=== PATIENT | female | born 1955 | race Caucasian/White ===

== ENCOUNTER 2021-09-25 16:51 | Emergency (ER) | payer MEDICARE ==
--- OUTSIDE RECORDS SUMMARY | 2021-09-25 16:57 | XMS REPORT | Continuity of Care Document ---
:1955 Author Organization [facility] t Address [address] [place] [address] Care Team Providers Name Role Phone Arturo Frandy HEWITT Primary Care Physician Angus Morris Attending Clinician Unavailable Fauzia Jackson Attending Clinician Unavailable RADIOLOGY Attending Clinician Unavailable Joy_Adriel Attending Clinician Unavailable Doctor Unassigned, Name Attending Clinician Unavailable Therapy, Covid Infusion Attending Clinician Unavailable Adriel Morris MD Attending Clinician Adriel MORRIS Attending Clinician Unavailable JAZMÍN FONTAINE Attending Clinician Unavailable Jazmín Fontaine MD Attending Clinician EBEN_Lory Attending Clinician Unavailable Fidelia Rodriguez MD Attending Clinician Regan GAMA Attending Clinician Unavailable Lory TAVARES Attending Clinician Unavailable Angus KATHLEEN Attending Clinician Unavailable Lory Joshi Attending Clinician Fauzia Gallegos MD Attending Clinician Fauzia GALLEGOS Attending Clinician Unavailable Pob, Lab Main Attending Clinician Unavailable José LAWLER Attending Clinician Unavailable Tiffany Admitting Clinician Unavailable JAZMÍN FONTAINE Admitting Clinician Unavailable SAURABH Admitting Clinician Unavailable Payers Payer Name Policy Type Policy Number Effective Date Expiration Date S jeremías [facility] Welcome Funds DCYSKS 2020 (MEDICARE 00:00:00 REPLACEMENT HMO) [place] [id number] 2019 MEDICARE SUPPLEMENT 00:00:00 Problems Condition Condition Condition Status Onset Resolution Last Treating Co mments Source Name Details Category Date Date Treatment Clinician Date 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 at 03 st L3-L4 L3-L4 00:00: Hospita level level 00 l Lumbar Lumbar Disease Active Methodi stenosis stenosis 11-11 st with with 00:00: Hospita neurogenic neurogenic 00 l claudicati claudicati on on DDD DDD Disease Active Methodi (degenerat (degenerat 11-11 st deisy disc deisy disc 00:00: Hospit a disease), disease), 00 l lumbar lumbar Pacemaker Pacemaker Disease Active Met hodi 11-11 st 00:00: Hospita 00 l H/O heart H/O heart Disease Active Met hodi artery artery 11-11 st stent stent 00:00: Hospita 00 l Obesity, Obesity, Disease Active Metho di Class II, Class II, 03 st BMI BMI 00:00: Hospita 35-39.9 35-39.9 00 l LEFT HEART Diagnosis Active 2019-08-15 Memoria CATH / 08-02 10:41:00 l POSS PCI LEFT 00:00: [place] HEART CATH 00 / POSS PCI Active 08/02/2019 [facility] Pacemaker Pacemaker Disease Active 2017-07 Uni vers 1-15 ity of 00:00: [place] 00 [facility] Branch Urinary Urinary Disease Active Univers incontinen incontinen 04-06 it y of ce, ce, 00:00: [place] unspecifie unspecifie 00 Me dical d type d type Branch Fatty Fatty Disease Active Univers liver liver - ity of 00:00: [place] 00 Medical Branch Colon Colon Disease Active 2015-07 Univers cancer cancer 0-20 [place] of screening screening [place] Vaginal Vaginal Disease Active Univers atrophy atrophy 8 ity of 00:00: [place] 00 Medical Branch Postmenopa Postmenopa Disease Active U alex usal usal 03-06 ity of 00:00: [place] [facility] History of History of Disease Active U alex hysterecto hysterecto 03-06 it y of my my 00:00: [place] 00 Medical Branch Obesity Obesity Disease Active Univers (BMI (BMI 8- ity of 30.0-34.9) 30.0-34.9) [place] Overweight Problem Active 2019-08-13 M emoria (finding) 08-22 22:19:59 l 00:00: [place] Overweight 00 (finding) Active 08/22/2014 Problem 08/13/2019 Data migrated from [place] [employer] on 01/16/15. [facility]ysp[facility] on Problem Active 2017-06-04 M emoria exertion 11-27 01:11:35 l (finding) Dyspnea 00:00: Herm hunter on 00 exertion (finding) Active 11/27/2013 Problem 06/04/2017 Data migrated from [employer] on 12/08/14. [facility] Cervical Problem Active 2012-072019-08-13 Mem oria radiculiti - 22:19:59 l s Cervical 00:00: Juni n (disorder) radiculiti 00 s (disorder) Active 05/17/2013 Problem 08/13/2019 Data migrated from [employer] on 03/05/15. [facility] Pernicious Problem Active 2019-08-13 M emoria anemia 04-03 22:19:59 l (disorder) 00:00: [place] Pernicious 00 anemia (disorder) Active 04/03/2013 Problem 08/13/2019 Data migrated from [employer] on 12/08/14. [facility] Diagnosis Active 2013-01-27 Me moria 01-27 18:21:[address] SENT 08:00: [place] 00 Active 01/27/2013 [facility] Adjustment Problem Active 2011-072019-08-13 M emoria disorder 2- 22:19:59 l with 00:00: [place] depressed Adjustment 00 mood disorder (disorder) with depressed mood (disorder) Active 06/27/2012 Problem 08/13/2019 Data migrated from [employer] on 12/08/14. Medical [facility] Dyslipidem Problem Active 2011-072019-08-13 M anariadriel ia 2-17 22:19:59 l (disorder) 00:00: [place] n Dyslipidem 00 ia (disorder) Active 06/27/2012 Problem 08/13/2019 Data migrated from [employer] on 12/08/14. [facility] Diabetes Problem Resolve 2013-04-05 Me moria mellitus - d 21:39:45 l adult Diabetes Juni n onset mellitus - adult onset Resolved Problem 04/05/2013 [facility] [place] Hyperchole Problem Resolve 2013-04-05 Memoria sterolemia d 21:39:45 l [place] Hyperchole sterolemia Resolved Problem 04/05/2013 [facility] [place] Hypertensi Problem Resolve 2013-04-05 Memoria on d 21:39:45 l [place] Hypertensi on Resolved Problem 04/05/2013 [facility] [place] Hypertrigl Problem Resolve 2013-04-05 Memoria yceridemia d 21:39:45 l [place] Hypertrigl yceridemia Resolved Problem 04/05/2013 [facility] [place] TIA Problem Resolve 2013-04-05 Tej ángela d 21:39:45 l TIA [place] Resolved Problem 04/05/2013 [facility] OPIPaulina [place] Diabetes Problem Resolve 2019-08-13 Me moria mellitus d 22:19:59 l type 2 Diabetes Juni n (disorder) mellitus type 2 (disorder) Resolved Problem 08/13/2019 [facility] [place] Hyperchole Problem Resolve 2019-08-13 Memoria sterolemia d 22:19:59 l (disorder) Juni n Hyperchole sterolemia (disorder) Resolved Problem 08/13/2019 [facility] [place] [place] Hypertensi Problem Resolve 2019-08-13 Memoria ve d 22:19:59 l disorder, [place] systemic Hypertensi arterial ve (disorder) disorder, systemic arterial (disorder) Resolved Problem 08/13/2019 [facility] [place] Hypertrigl Problem Resolve 2019-08-13 Memoria yceridemia d 22:19:59 l (disorder) Juni n Hypertrigl yceridemia (disorder) Resolved Problem 08/13/2019 [facility], [facility] Transient Problem Resolve 2019-08-13 M emoria ischemic d 22:19:59 l attack [place] (disorder) Transient ischemic attack (disorder) Resolved Problem 08/13/2019 [facility], [place] Benign Problem Active 2019-08-13 Memor ia paroxysmal 22:19:59 l positional Benign Herm hunter vertigo paroxysmal (disorder) positional vertigo (disorder) Active Problem 08/13/2019 [facility] Bradycardi Problem Active 2019-08-13 M emoria a 22:19:59 l (disorder) Juni n Bradycardi a (disorder) Active Problem 08/13/2019 [facility] Liver Problem Active 2019-08-13 Memor ia function 22:19:59 l tests Liver [place] abnormal function (finding) tests abnormal (finding) Active Problem 08/13/2019 [facility] Obesity Problem Active 2019-08-13 Tej ángela (disorder) 22:19:59 l Obesity [place] (disorder) Active Problem 08/13/2019 [facility] Sick sinus Problem Active 2019-08-13 M emoria syndrome 22:19:59 l (disorder) Sick Juni n sinus syndrome (disorder) Active Problem 08/13/2019 [facility] Skin tag Problem Active 2019-08-13 Mem oria (disorder) 22:19:59 l Skin tag Juni n (disorder) Active Problem 08/13/2019 [facility] Preoperati Problem Resolve 2012-072019-08-13 2019-08-13 Memoria ve d 08-29 22:19:59 22:19:59 l procedures 00:00: Juni n (procedure Preoperati 00 ) ve procedures (procedure ) Resolved 06/28/2013 Problem 08/13/2019 Data migrated from [employer] on 01/26/15.Da ta migrated from [employer] on 01/25/15. [facility] Acute Problem Resolve 2019-08-13 2019-08-13 Memoria pyelonephr d 01-27 22:19:59 22:19:59 l itis Acute 00:00: [place] (disorder) pyelonephr 00 itis (disorder) Resolved 01/27/2013 Problem 08/13/2019 Data migrated from [place] [employer] on 01/26/15.Da ta migrated from [employer] on 01/25/15. [facility] Streptococ Problem Resolve 2019-08-13 2019-08-13 Memoria mell sore d 10-24 22:19:59 22:19:59 l throat 00:00: [place] (disorder) Streptococ 00 mell sore throat (disorder) Resolved 10/24/2012 Problem 08/13/2019 Data migrated from [employer] on 01/26/15.Da ta migrated from [place] [employer] on 01/25/15. [facility] Allergies, Adverse Reactions, Alerts Allergy Allergy Status Severity Reaction(s) Onset Inactive Treating Comm ents Source Name Type Date Date Clinician Sulfa Propensi Active Other (See unknown Met hodi (Sulfona ty to Comments) 11-06 mide adverse 00:00: Hospita Antibiot reaction 00 l ics) s to drug Sulfa Propensi Active Swelling 2019-07 Univer s (Sulfona ty to 0-05 ity of mide adverse 00:00: [place] Antibiot reaction 00 Medica l ics) s Branch SULFA Drug Active Swelling 2019-07 Univers (SULFONA Class 0-05 ity of MIDE 00:00: [place] ANTIBIOT 00 Medical ICS) Branch NO KNOWN Drug Active Univers ALLERGIE Class ity of S [facility] Family History Family Member Diagnosis Comments Start Date Stop Date Source Natural brother [facility] Natural father Diabetes [facility] Natural father [facility] Natural [facility] Hypert[facility] Natural mother Arthritis [facility] [place] Natural mother Cancer [facility] [place] [facility] [place] Social History Social Habit Start Date Stop Date Quantity Comments Source Exposure to Yes University of SARS-CoV-2 (event) [place] [facility] History [facility] o f Alcohol Frequency [place] [facility] History [facility] o f Alcohol Std Drinks [place] [facility] History [facility] University o f Alcohol Binge [place] [facility] History of tobacco Smoker [facility] Cigarettes smoked 2020-11-06 2020-11-[address] current (pack per 00:00:00 00:00:00 Hospita l day) - Reported Cigarette 2020-11-06 2020-11-06 Spiritism pack-years 00:00:00 00:00:00 Hospital Tobacco use and 2020-11-06 2020-11-06 Smokeless tobacco Me thodist exposure 00:00:00 00:00:00 non-user Hospital Alcohol intake 2020-11-06 2020-11-06 Ex-drinker [facility] 00:00:00 00:00:00 (finding) Hospital Alcohol Comment 2016-04-29 2016-04-29 Occasional Universit y of 00:00:00 00:00:00 Drinker [facility] Tobacco Comment 2016-03-06 2016-03-06 quit 43 years ago Un iversity of 00:00:00 00:00:00 [facility] Social History 2015-07-31 2015-07-31 [facility] amrita 17:03:29 17:03:29 Sex [birth year] [facility] 00:00:00 00:00:00 Hospital Smoking Status Start Date Stop Date Source Ex-smoker 2020-11-06 00:00:00 2020-11-06 00:00:00 [facility] Medications Ordered Filled Start Stop Current Ordering Indication Dosage Frequency Signature Comments Components Source Medication Medication Date Date Medication? Clinician (SIG) Name Name casirivimab 2020-07- No [id number] 1200mg 1,200 mg, Univers -imdevimab 09-01 Subcutaneo it y of (REGEN-COV 23:30: 22:25 us, ONCE, [place] (EUA[place] 00 :00 1 dose, On Medical injection Tue Branch (CO-FORMULA 07/01/21 TION) 1,200 at 1730, mg Routine metoclopram 2020-07 Yes 10mg 10 mg, Univ ers vanessa HCl -19 Oral, AC, ity of (REGLAN) 22:30: First dose Iván as tablet 10 00 on Sun Medical mg 06/29/21 Branch at 1630, Until Discontinu ed, Routine diphenhydrA 2020-07- No 25mg 25 mg, Uni vers MINE -06-29 Oral, ity of (BENADRYL) 20:00: 18:59 ONCE, 1 Iván as tablet 25 00 :00 dose, On Medica l mg [place] Branch 06/29/21 at 1400, SLOAN acetaminoph 2020-07- No 1000mg 1,000 mg, Univers en 08-30 Oral, ONCE ity of (TYLENOL) 20:00: 18:59 NOW, 1 [place] tablet 00 :00 dose, On Medical 1,000 mg Sun Branch 06/29/21 at 1400, Routine famotidine 2020-07- Yes [id number] 20mg Take 1 Univers (PEPCID) 20 08-30 tablet by it y of mg tablet 00:00: 05:59 mouth 2 [place] 00 :[place] (two) Medical times Branch daily for 7 days. Zinc 50 mg 2020-07- Yes [id number] 25mg Take 25 mg Univers Tab 08-30 by mouth 2 ity of 00:00: 05:59 (two) [place] 00 :00 times Medical daily for Branch 7 days. guaiFENesin 2020-07- Yes [id number] 600mg Take 1 Univers (MUCINEX) 08-30 tablet by ity of 600 mg 00:00: 05:59 mouth [place] tablet 00 :00 every 12 Medical (twelve) Branch hours for 7 days. famotidine 2020-07- Yes [id number] 20mg Take 1 Univers (PEPCID) 20 08-30 tablet by it y of mg tablet 00:00: 05:59 [place] 2 [place] 00 :[place] (two) Medical times Branch daily for 7 days. Zinc 50 mg 2020-07- Yes [id number] 25mg Take 25 mg Univers Tab 08-30 by mouth 2 ity of 00:00: 05:59 (two) [place] 00 :00 times Medical daily for Branch 7 days. guaiFENesin 2020-07- Yes [id number] 600mg Take 1 Univers (MUCINEX) 08-30- tablet by ity of 600 mg 00:00: 05:59 mouth [place] tablet 00 :00 every 12 Medical (twelve) Branch hours for 7 days. quercetin 2020-07- Yes [id number] 250mg 250 mg 2 Univers dihydrate, 08-30- (two) ity of bulk, 100 % 00:00: 05:59 [place] Powd 00 :00 daily for Medical 4 days. Branch quercetin 2020- 202- Yes [id number] 250mg 250 mg 2 Univers dihydrate, 2-19 12-24 (two) ity of bulk, 100 % 00:00: 05:59 [place] Powd 00 :00 daily for Medical 4 days. Branch biotin Yes Take by Methodi 10,000 mcg 4-[address] capsule 12:12: Hospita 55 l cholecalcif 0 Yes Take by Met hodi andree, 4-[address] vitamin D3, 12:12: Hospit a (Vitamin 55 l D3) 125 mcg (5,000 unit) tablet ascorbic Yes 1000mg QD Take 1,000 M ethodi acid, 4-[address] vitamin C, 12:12: mouth Hospit a (vitamin C) 55 daily. l 1000 MG tablet multivitami Yes 1{tbl} QD Take 1 Me thodi n tablet 4-[address] 12:12: mouth Hospita 54 daily. l aspirin 0 Yes 81mg QD Take 81 mg Meth annie (ECOTRIN) 4-[address] 81 MG 12:12: daily. Hospita enteric 54 l coated tablet diphenhydrA Yes 50mg Q.5D Take 50 mg Methodi MINE 4-[address] (BENADRYL) 12:12: (two) Hospit a 25 mg 54 times a l tablet day. zinc Yes Take by Methodi sulfate 4-[address] (ZINC-220 12:12: Hospita ORAL) 54 l Lactobac 0 Yes Take by Method i no.41/Bifid 4-[address] obact no.7 12:12: Hospita (PROBIOTIC- 54 l 10 ORAL) ibuprofen 0 Yes 200mg Q6H Take 200 Met hodi (ADVIL) 200 4-[address] MG tablet 12:12: mouth Hospita 53 every 6 l (six) hours as needed for mild pain. escitalopra Yes 10mg QD Take 10 mg Methodi m (LEXAPRO) 3-[address] 10 MG 00:00: daily. Hospita tablet 00 l atorvastati Yes 20mg QD Take 20 mg Methodi n (LIPITOR) 3-[address] 20 mg 00:00: daily. Hospita tablet 00 l amLODIPine Yes 5mg QD Take 5 mg Me thodi (NORVASC) 5 2-[address] mg tablet 00:00: daily. Hospit a 00 l clopidogreL Yes 75mg QD Take 75 mg Methodi (PLAVIX) 75 2-[address] mg tablet 00:00: daily. Hospit a 00 l fenofibrate Yes 145mg QD Take 145 M ethodi (TRICOR) 2-[address] 145 MG 00:00: mouth Hospita tablet 00 daily. l metFORMIN Yes 500mg Q.5D Take 500 Met hodi XR 2-[address] (GLUCOPHAGE 00:00: mouth 2 Hos sarah -XR) 500 mg 00 (two) l 24 hr times a tablet day. contrast 2019-07 2020- No Intravenou Un rishabh previously 07-30 s, ONCE, 1 it y of administere 16:30: 16:13 dose, Jennifer [place] d 0 mL 00 :00 05/30/20 Medical at 1030, Branch Routine iohexoL 2019-07 2020- No 50mL 50 mL, Univers (OMNIPAQUE -19 05-30 Injection, it y of 300-50 mL)) 16:15: 16:13 ONCE, 1 [place] injection 00 :00 dose, Jennifer Medic al 50 mL 05/30/20 Branch at 1015, Routine amLODIPine 2019-07 Yes Univers 5 mg tablet 0-23 ity of 00:00: [place] 00 Medical Branch amLODIPine 2019-07 Yes Univers 5 mg tablet 0-23 ity of 00:00: [place] 00 Medical Branch amLODIPine 2019- Yes Univers 5 mg tablet 0-23 ity of 00:00: [place] [facility] amLODIPine 2019-07 Yes Univers 5 mg tablet 0-23 ity of 00:00: [place] [facility] amLODIPine 2020- Yes Univers 5 mg tablet 0-23 ity of 00:00: [place] 00 Medical Branch amLODIPine 2020- Yes Univers 5 mg tablet 0-23 ity of 00:00: [place] [facility] amLODIPine 2019- Yes Univers 5 mg tablet 0-23 ity of 00:00: [place] 00 Medical Branch amLODIPine 2020-1 Yes Univers 5 mg tablet 0-23 ity of 00:00: [place] 00 Medical Branch amLODIPine 2020-1 Yes Univers 5 mg tablet 0-23 ity of 00:00: [place] [facility] amLODIPine 2020- Yes Univers 5 mg tablet 0-23 ity of 00:00: [place] [facility] amLODIPine 2020- Yes Univers 5 mg tablet 0-23 ity of 00:00: [place] [facility] amLODIPine 2020- Yes Univers 5 mg tablet 0-23 ity of 00:00: [place] [facility] amLODIPine 2020- Yes Univers 5 mg tablet 0-23 ity of 00:00: [place] [address] Medical Branch amLODIPine 2020- Yes Univers 5 mg tablet 0-23 ity of 00:00: [place] [facility] amLODIPine 2020- Yes Univers 5 mg tablet 0-23 ity of 00:00: [place] [address] Medical Branch amLODIPine 2020- Yes Univers 5 mg tablet 0-23 ity of 00:00: [place] [facility] amLODIPine 2020- Yes Univers 5 mg tablet 0-23 ity of 00:00: [place] [facility] amLODIPine 2020- Yes Univers 5 mg tablet 0-23 ity of 00:00: [place] [address] Medical Branch amLODIPine 2020- Yes Univers 5 mg tablet 0-23 ity of 00:00: [place] [address] Medical Branch amLODIPine 2020- Yes Univers 5 mg tablet 0-23 ity of 00:00: [place] [address] Medical Branch amLODIPine 2020- Yes Univers 5 mg tablet 0-23 ity of 00:00: [place] [facility] amLODIPine 2020- Yes Univers 5 mg tablet 0-23 ity of 00:00: [place] [facility] amLODIPine 2020- Yes Univers 5 mg tablet 0-23 ity of 00:00: [place] [address] Medical Branch amLODIPine 2020-1 Yes Univers 5 mg tablet 0-23 ity of 00:00: [place] [facility] amLODIPine 2020- Yes Univers 5 mg tablet 0-23 ity of 00:00: [place] [facility] amLODIPine 2020- Yes Univers 5 mg tablet 0-23 ity of 00:00: [place] [address] Medical Branch amLODIPine 2020-1 Yes Univers 5 mg tablet 0-23 ity of 00:00: [place] [facility] amLODIPine 2020-1 Yes Univers 5 mg tablet 0-23 ity of 00:00: [place] 00 Medical Branch vitamin C 2019- Yes 100mg Take 100 Uni vers (VITAMIN C) 0-05 mg by ity of 100 mg 19:42: mouth [place] tablet 06 daily. Medical Branch aspirin 81 2019-07 Yes 81mg Take 81 mg U nivers mg chewable 0-05 by mouth ity of tablet 19:42: daily. Medical Branch DIPHENHYDRA 2019-07 Yes Take by Un rishabh MINE HCL 0-05 mouth. ity of (NIGHT TIME 19:42: [place] SLEEP AID Medical ORAL) Branch docosahexan 2019-07 Yes Take by Un rishabh oic 0-05 mouth. ity of acid/epa 19:42: [place] (FISH OIL Medical ORAL) Branch homeopathic 2019-07 Yes Take by Un rishabh drugs 0-05 mouth. ity of (INSOMNIA 19:42: [place] PLUS ORAL) 06 Medical Branch clopidogreL 2019-07 Yes 75mg Take 75 mg Univers 75 mg 0-05 by mouth ity of tablet 19:42: daily. Medical Branch simvastatin 2019-07 Yes 10mg Take 10 mg Univers 10 mg 0-05 by mouth ity of tablet 19:42: at [place] 06 bedtime. Medical Branch fenofibrate 2019-07 Yes 145mg Take 145 U nivers 145 mg 0-05 mg by ity of tablet 19:42: mouth [place] 06 daily. Medical Branch metFORMIN 2019-07 Yes 500mg Take 500 Uni vers 500 mg 0-05 mg by ity of tablet 19:42: mouth 2 [place] 06 (two) Medical times Branch daily with meals. escitalopra 2019-07 Yes 10mg Take 10 mg Univers m oxalate 0-05 by mouth ity of 10 mg 19:42: daily. [place] tablet 06 Medical Branch nitrofurant 2019-07 Yes 100mg Take 100 U nivers oin 50 mg 0-05 mg by ity of capsule 19:42: mouth [place] 06 every 6 Medical (six) Branch hours. cranberry/B 2019-07 Yes Take by Un rishabh .coagulan/C 0-05 mouth. ity of /calcium 19:42: [place] (CRANBERRY- Medical PROBIOTIC Branch ORAL) vitamin C 2019-07 Yes 100mg Take 100 Uni vers (VITAMIN C) 0-05 mg by ity of 100 mg 19:42: mouth [place] tablet 06 daily. Medical Branch aspirin 81 2019-07 Yes 81mg Take 81 mg U nivers mg chewable 0-05 by mouth ity of tablet 19:42: daily. Medical Branch DIPHENHYDRA 2019-07 Yes Take by Un rishabh MINE HCL 0-05 mouth. ity of (NIGHT TIME 19:42: [place] SLEEP AID Medical ORAL) Branch docosahexan 2019-07 Yes Take by Un rishabh oic 0-05 mouth. ity of acid/epa 19:42: [place] (FISH OIL Medical ORAL) Branch homeopathic 2019-07 Yes Take by Un rishabh drugs 0-05 mouth. ity of (INSOMNIA 19:42: [place] PLUS ORAL) 06 Medical Branch clopidogreL 2019-07 Yes 75mg Take 75 mg Univers 75 mg 0-05 by mouth ity of tablet 19:42: daily. Medical Branch simvastatin 2019-07 Yes 10mg Take 10 mg Univers 10 mg 0-05 by mouth ity of tablet 19:42: at [place] bedtime. Medical Branch fenofibrate 2019-07 Yes 145mg Take 145 U nivers 145 mg 0-05 mg by ity of tablet 19:42: mouth [place] 06 daily. Medical Branch metFORMIN 2019-07 Yes 500mg Take 500 Uni vers 500 mg 0-05 mg by ity of tablet 19:42: mouth 2 [place] [address] (two) Medical times Branch daily with meals. escitalopra 2019-07 Yes 10mg Take 10 mg Univers m oxalate 0-05 by mouth ity of 10 mg 19:42: daily. [place] tablet Medical Branch nitrofurant 2019-07 Yes 100mg Take 100 U nivers oin 50 mg 0-05 mg by ity of capsule 19:42: mouth [place] 06 every 6 Medical (six) Branch hours. cranberry/B 2019-07 Yes Take by Un rishabh .coagulan/C 0-05 mouth. ity of /calcium 19:42: [place] (CRANBERRY- Medical PROBIOTIC Branch ORAL) vitamin C 2019-07 Yes 100mg Take 100 Uni vers (VITAMIN C) 0-05 mg by ity of 100 mg 19:42: mouth [place] tablet 06 daily. Medical Branch aspirin 81 2019-07 Yes 81mg Take 81 mg U nivers mg chewable 0-05 by mouth ity of tablet 19:42: daily. Medical Branch DIPHENHYDRA 2019-07 Yes Take by Un rishabh MINE HCL 0-05 mouth. ity of (NIGHT TIME 19:42: [place] SLEEP AID Medical ORAL) Branch docosahexan 2019-07 Yes Take by Un rishabh oic 0-05 mouth. ity of acid/epa 19:42: [place] (FISH OIL Medical ORAL) Branch homeopathic 2019-07 Yes Take by Un rishabh drugs 0-05 mouth. ity of (INSOMNIA 19:42: [place] PLUS ORAL) 06 Medical Branch clopidogreL 2019-07 Yes 75mg Take 75 mg Univers 75 mg 0-05 by mouth ity of tablet 19:42: daily. Medical Branch simvastatin 2019- Yes 10mg Take 10 mg Univers 10 mg 0-05 by mouth ity of tablet 19:42: at [place] [address] bedtime. Medical Branch fenofibrate 2019-07 Yes 145mg Take 145 U nivers 145 mg 0-05 mg by ity of tablet 19:42: mouth [place] 06 daily. Medical Branch metFORMIN 2019-07 Yes 500mg Take 500 Uni vers 500 mg 0-05 mg by ity of tablet 19:42: mouth 2 [place] [address] (two) Medical times Branch daily with meals. escitalopra 2019-07 Yes 10mg Take 10 mg Univers m oxalate 0-05 by mouth ity of 10 mg 19:42: daily. [place] tablet Medical Branch nitrofurant 2019-07 Yes 100mg Take 100 U nivers oin 50 mg 0-05 mg by ity of capsule 19:42: mouth [place] [address] every 6 Medical (six) Branch hours. cranberry/B 2019-07 Yes Take by Un rishabh .coagulan/C 0-05 mouth. ity of /calcium 19:42: [place] (CRANBERRY- Medical PROBIOTIC Branch ORAL) vitamin C 2019- Yes 100mg Take 100 Uni vers (VITAMIN C) 0-05 mg by ity of 100 mg 19:42: mouth [place] tablet 06 daily. Medical Branch aspirin 81 2019-07 Yes 81mg Take 81 mg U nivers mg chewable 0-05 by mouth ity of tablet 19:42: daily. [place] [address] Medical Branch DIPHENHYDRA 2019-07 Yes Take by Un rishabh MINE HCL 0-05 mouth. ity of (NIGHT TIME 19:42: [place] SLEEP AID Medical ORAL) Branch docosahexan 2019-07 Yes Take by Un rishabh oic 0-05 mouth. ity of acid/epa 19:42: [place] (FISH OIL Medical ORAL) Branch homeopathic 2019-07 Yes Take by Un rishabh drugs 0-05 mouth. ity of (INSOMNIA 19:42: [place] PLUS ORAL) Medical Branch clopidogreL 2019-07 Yes 75mg Take 75 mg Univers 75 mg 0-05 by mouth ity of tablet 19:42: daily. Medical Branch simvastatin 2019-07 Yes 10mg Take 10 mg [facility] 10 mg 0-05 by mouth ity of tablet 19:42: at [place] [address] bedtime. [facility] fenofibrate 2019-07 Yes 145mg Take 145 U nivers 145 mg 0-05 mg by ity of tablet 19:42: mouth [place] 06 daily. Medical Branch metFORMIN 2019-07 Yes 500mg Take 500 Uni vers 500 mg 0-05 mg by ity of tablet 19:42: mouth 2 (two) Medical times Branch daily with meals. escitalopra 2019-07 Yes 10mg Take 10 mg [facility] m oxalate 0-05 by mouth ity of 10 mg 19:42: daily. [place] tablet Medical Branch nitrofurant 2019-07 Yes 100mg Take 100 U nivers oin 50 mg 0-05 mg by ity of capsule 19:42: mouth every 6 Medical (six) Branch hours. cranberry/B 2019-07 Yes Take by Un rishabh .coagulan/C 0-05 mouth. ity of /calcium 19:42: [place] (CRAN[facility]ERRY- Medical PROBIOTIC Branch ORAL) vitamin C 2019-07 Yes 100mg Take 100 Uni vers (VITAMIN C) 0-05 mg by ity of 100 mg 19:42: mouth [place] tablet 06 daily. Medical Branch aspirin 81 2019-07 Yes 81mg Take 81 mg U nivers mg chewable 0-05 by mouth ity of tablet 19:42: daily. [facility] DIPHENHYDRA 2019-07 Yes Take by Un rishabh MINE HCL 0-05 mouth. ity of (NIGHT TIME 19:42: [place] SLEEP AID Medical ORAL) Branch docosahexan 2019-07 Yes Take by Un rishabh oic 0-05 mouth. ity of acid/epa 19:42: [place] (FISH OIL Medical ORAL) Branch homeopathic 2019-07 Yes Take by Un rishabh drugs 0-05 mouth. ity of (INSOMNIA 19:42: [place] PLUS ORAL) Medical Branch clopidogreL 2019-07 Yes 75mg Take 75 mg [facility] 75 mg 0-05 by mouth ity of tablet 19:42: daily. [facility] simvastatin 2019-07 Yes 10mg Take 10 mg [facility] 10 mg 0-05 by mouth ity of tablet 19:42: at [place] [address] bedtime. Medical [facility] fenofibrate 2019-07 Yes 145mg Take 145 U nivers 145 mg 0-05 mg by ity of tablet 19:42: mouth [place] 06 daily. [facility] metFORMIN 2019-07 Yes 500mg Take 500 [facility] vers 500 mg 0-05 mg by ity of tablet 19:42: mouth 2 [place] (two) Medical times Branch daily with meals. escitalopra 2019-07 Yes 10mg Take 10 mg [facility] m oxalate 0-05 by mouth ity of 10 mg 19:42: daily. [place] [address] Medical Branch nitrofurant 2019-07 Yes 100mg Take 100 U nivers oin 50 mg 0-05 mg by ity of capsule 19:42: mouth [place] 06 every 6 Medical (six) Branch hours. cranberry/B 2019-07 Yes Take by Un rishabh .coagulan/C 0-05 mouth. ity of /calcium 19:42: [place] ([facility]- Medical PROBIOTIC Branch ORAL) vitamin C 2019-07 Yes 100mg Take 100 [facility] vers (VITAMIN C) 0-05 mg by ity of 100 mg 19:42: mouth [place] tablet 06 daily. Medical [facility] aspirin 81 2019-07 Yes 81mg Take 81 mg [facility] nivers mg chewable 0-05 by mouth ity of tablet 19:42: daily. [facility] DIPHENHYDRA 2019-07 Yes Take by Un rishabh MINE HCL 0-05 mouth. ity of (NIGHT TIME 19:42: [place] SLEEP AID Medical ORAL) Branch docosahexan 2019-07 Yes Take by Un rishabh oic 0-05 mouth. ity of acid/epa 19:42: [place] (FISH OIL Medical ORAL) Branch homeopathic 2019-07 Yes Take by Un rishabh drugs 0-05 mouth. ity of (INSOMNIA 19:42: [place] PLUS ORAL) Medical Branch clopidogreL 2019-07 Yes 75mg Take 75 mg [facility] 75 mg 0-05 by mouth ity of tablet 19:42: daily. [place] [address] Medical Branch simvastatin 2019-07 Yes 10mg Take 10 mg [facility] 10 mg 0-05 by mouth ity of tablet 19:42: at [place] 06 bedtime. Medical [facility] fenofibrate 2019-07 Yes 145mg Take 145 [facility] nivers 145 mg 0-05 mg by ity of tablet 19:42: mouth [place] 06 daily. [facility] metFORMIN 2019-07 Yes 500mg Take 500 [facility] vers 500 mg 0-05 mg by ity of tablet 19:42: mouth 2 [place] (two) Medical times Branch daily with meals. escitalopra 2019-07 Yes 10mg Take 10 mg [facility] m oxalate 0-05 by mouth ity of 10 mg 19:42: daily. [place] tablet Medical [facility] nitrofurant 2019-07 Yes 100mg Take 100 [facility] nivers oin 50 mg 0-05 mg by ity of capsule 19:42: mouth [place] 06 every 6 Medical (six) Branch hours. cranberry/B 2019-07 Yes Take by Un rishabh .coagulan/C 0-05 mouth. ity of /calcium 19:42: [place] ([facility]- Medical PROBIOTIC Branch ORAL) vitamin C 2019-07 Yes 100mg Take 100 [facility] vers (VITAMIN C) 0-05 mg by ity of 100 mg 19:42: mouth [place] tablet 06 daily. Medical [facility] aspirin 81 2019-07 Yes 81mg Take 81 mg [facility] nivers mg chewable 0-05 by mouth ity of tablet 19:42: daily. [facility] DIPHENHYDRA 2019-07 Yes Take by Un rishabh MINE HCL 0-05 mouth. ity of (NIGHT TIME 19:42: [place] SLEEP AID Medical ORAL) Branch docosahexan 2019-07 Yes Take by Un rishabh oic 0-05 mouth. ity of acid/epa 19:42: [place] (FISH OIL Medical ORAL) Branch homeopathic 2019-07 Yes Take by Un rishab[facility] drugs 0-05 mouth. ity of (INSOMNIA 19:42: [place] PLUS ORAL) 06 Medical Branch clopidogreL 2019-07 Yes 75mg Take 75 mg [facility] 75 mg 0-05 by mouth ity of tablet 19:42: daily. [facility] simvastatin 2019-07 Yes 10mg Take 10 mg [facility] 10 mg 0-05 by mouth ity of tablet 19:42: at [place] [address] bedtime. Medical [facility] fenofibrate 2019-07 Yes 145mg Take 145 [facility] nivers 145 mg 0-05 mg by ity of tablet 19:42: mouth [place] 06 daily. [facility] metFORMIN 2019-07 Yes 500mg Take 500 [facility] vers 500 mg 0-05 mg by ity of tablet 19:42: mouth 2 (two) Medical times Branch daily with meals. escitalopra 2019-07 Yes 10mg Take 10 mg [facility] m oxalate 0-05 by mouth ity of 10 mg 19:42: daily. [place] tablet Medical [facility] nitrofurant 2019-07 Yes 100mg Take 100 U nivers oin 50 mg 0-05 mg by ity of capsule 19:42: mouth [place] 06 every 6 Medical (six) Branch hours. cranberry/B 2019-07 Yes Take by Un rishabh .coagulan/C 0-05 mouth. ity of /calcium 19:42: [place] ([facility]- Medical PROBIOTIC Branch ORAL) vitamin C 2019-07 Yes 100mg Take 100 [facility] vers (VITAMIN C) 0-05 mg by ity of 100 mg 19:42: mouth [place] tablet 06 daily. Medical Branch aspirin 81 2019-07 Yes 81mg Take 81 mg [facility] nivers mg chewable 0-05 by mouth ity of tablet 19:42: daily. [facility] DIPHENHYDRA 2019-07 Yes Take by Un rishabh MINE HCL 0-05 mouth. ity of (NIGHT TIME 19:42: [place] SLEEP AID Medical ORAL) Branch docosahexan 2019-07 Yes Take by Un rishabh oic 0-05 mouth. ity of acid/epa 19:42: [place] (FISH OIL Medical ORAL) Branch homeopathic 2019-07 Yes Take by Un rishab[facility] drugs 0-05 mouth. ity of (INSOMNIA 19:42: [place] PLUS ORAL) 06 Medical Branch clopidogreL 2019-07 Yes 75mg Take 75 mg [facility] 75 mg 0-05 by mouth ity of tablet 19:42: daily. [facility] simvastatin 2019-07 Yes 10mg Take 10 mg [facility] 10 mg 0-05 by mouth ity of tablet 19:42: at [place] 06 bedtime. Medical [facility] fenofibrate 2019-07 Yes 145mg Take 145 [facility] nivers 145 mg 0-05 mg by ity of tablet 19:42: mouth [place] 06 daily. [facility] metFORMIN 2019-07 Yes 500mg Take 500 [facility] vers 500 mg 0-05 mg by ity of tablet 19:42: mouth 2 (two) Medical times Branch daily with meals. escitalopra 2019-07 Yes 10mg Take 10 mg [facility] m oxalate 0-05 by mouth ity of 10 mg 19:42: daily. [place] tablet Medical [facility] nitrofurant 2019-07 Yes 100mg Take 100 [facility] nivers oin 50 mg 0-05 mg by ity of capsule 19:42: mouth [place] every 6 Medical (six) Branch hours. cranberry/B 2019-07 Yes Take by Un rishabh .coagulan/C 0-05 mouth. ity of /calcium 19:42: [place] ([facility]- Medical PROBIOTIC Branch ORAL) vitamin C 2019-07 Yes 100mg Take 100 [facility] vers (VITAMIN C) 0-05 mg by ity of 100 mg 19:42: mouth [place] tablet 06 daily. Medical Branch aspirin 81 2019-07 Yes 81mg Take 81 mg [facility] nivers mg chewable 0-05 by mouth ity of tablet 19:42: daily. [facility] DIPHENHYDRA 2019-07 Yes Take by Un rishabh MINE HCL 0-05 mouth. ity of (NIGHT TIME 19:42: [place] SLEEP AID Medical ORAL) Branch docosahexan 2019-07 Yes Take by Un rishabh oic 0-05 mouth. ity of acid/epa 19:42: [place] (FISH OIL Medical ORAL) Branch homeopathic 2019-07 Yes Take by Un rishab[facility] drugs 0-05 mouth. ity of (INSOMNIA 19:42: [place] PLUS ORAL) Medical Branch clopidogreL 2019-07 Yes 75mg Take 75 mg [facility] 75 mg 0-05 by mouth ity of tablet 19:42: daily. [facility] simvastatin 2019-07 Yes 10mg Take 10 mg [facility] 10 mg 0-05 by mouth ity of tablet 19:42: at [place] [address] bedtime. Medical [facility] fenofibrate 2019- Yes 145mg Take 145 [facility] nivers 145 mg 0-05 mg by ity of tablet 19:42: mouth [place] 06 daily. [facility] metFORMIN 2020- Yes 500mg Take 500 [facility] vers 500 mg 0-05 mg by ity of tablet 19:42: mouth 2 (two) Medical times Branch daily with meals. escitalopra 2019- Yes 10mg Take 10 mg [facility] m oxalate 0-05 by mouth ity of 10 mg 19:42: daily. [place] tablet Medical [facility] nitrofurant 2019- Yes 100mg Take 100 U nivers oin 50 mg 0-05 mg by ity of capsule 19:42: mouth [place] every 6 Medical (six) Branch hours. cranberry/B 2019-07 Yes Take by Un rishabh .coagulan/C 0-05 mouth. ity of /calcium 19:42: [place] ([facility]- Medical PROBIOTIC Branch ORAL) vitamin C 2019- Yes 100mg Take 100 [facility] vers (VITAMIN C) 0-05 mg by ity of 100 mg 19:42: mouth [place] tablet 06 daily. Medical Branch aspirin 81 2019-07 Yes 81mg Take 81 mg [facility] nivers mg chewable 0-05 by mouth ity of tablet 19:42: daily. [facility] DIPHENHYDRA 2019-07 Yes Take by Un rishabh MINE HCL 0-05 mouth. ity of (NIGHT TIME 19:42: [place] SLEEP AID Medical ORAL) Branch docosahexan 2019-07 Yes Take by Un rishabh oic 0-05 mouth. ity of acid/epa 19:42: [place] (FISH OIL Medical ORAL) Branch homeopathic 2019-07 Yes Take by Un r[facility]ab[facility] drugs 0-05 mouth. ity of (INSOMNIA 19:42: [place] PLUS ORAL) Medical Branch clopidogreL 2019- Yes 75mg Take 75 mg [facility] 75 mg 0-05 by mouth ity of tablet 19:42: daily. [facility] Branch simvastatin 2019-07 Yes 10mg Take 10 mg [facility] 10 mg 0-05 by mouth ity of tablet 19:42: at [place] [address] bedtime. Medical [facility] fenofibrate 2019-07 Yes 145mg Take 145 U nivers 145 mg 0-05 mg by ity of tablet 19:42: mouth 06 daily. Medical Branch metFORMIN 2019- Yes 500mg Take 500 [facility] vers 500 mg 0-05 mg by ity of tablet 19:42: mouth 2 [place] 06 (two) Medical times Branch daily with meals. escitalopra 2019-07 Yes 10mg Take 10 mg [facility] m oxalate 0-05 by mouth ity of 10 mg 19:42: daily. [place] tablet Medical [facility] nitrofurant 2019-07 Yes 100mg Take 100 U nivers oin 50 mg 0-05 mg by ity of capsule 19:42: mouth every 6 Medical (six) Branch hours. cranberry/B 2019-07 Yes Take by Un rishabh .coagulan/C 0-05 mouth. ity of /calcium 19:42: [place] ([facility]- Medical PROBIOTIC Branch ORAL) vitamin C 2019-07 Yes 100mg Take 100 [facility] vers (VITAMIN C) 0-05 mg by ity of 100 mg 19:42: mouth [place] tablet 06 daily. Medical Branch aspirin 81 2019-07 Yes 81mg Take 81 mg [facility] nivers mg chewable 0-05 by mouth ity of tablet 19:42: daily. Medical [facility] DIPHENHYDRA 2019-07 Yes Take by Un rishabh MINE HCL 0-05 mouth. ity of (NIGHT TIME 19:42: [place] SLEEP AID Medical ORAL) Branch docosahexan 2019-07 Yes Take by Un rishabh oic 0-05 mouth. ity of acid/epa 19:42: [place] (FISH OIL Medical ORAL) Branch homeopathic 2019-07 Yes Take by Un rishab[facility] drugs 0-05 mouth. ity of (INSOMNIA 19:42: [place] PLUS ORAL) Medical Branch clopidogreL 2019-07 Yes 75mg Take 75 mg [facility] 75 mg 0-05 by mouth ity of tablet 19:42: daily. [place] [facility] simvastatin 2019-07 Yes 10mg Take 10 mg [facility] 10 mg 0-05 by mouth ity of tablet 19:42: at [place] 06 bedtime. Medical Branch fenofibrate 2019-07 Yes 145mg Take 145 U nivers 145 mg 0-05 mg by ity of tablet 19:42: mouth [place] 06 daily. [facility] metFORMIN 2019-07 Yes 500mg Take 500 [facility] vers 500 mg 0-05 mg by ity of tablet 19:42: mouth 2 [place] 06 (two) Medical times Branch daily with meals. escitalopra 2019-07 Yes 10mg Take 10 mg [facility] m oxalate 0-05 by mouth ity of 10 mg 19:42: daily. [place] tablet Medical [facility] nitrofurant 2019-07 Yes 100mg Take 100 U nivers oin 50 mg 0-05 mg by ity of capsule 19:42: mouth [place] 06 every 6 Medical (six) Branch hours. cranberry/B 2019-07 Yes Take by Un rishabh .coagulan/C 0-05 mouth. ity of /calcium 19:42: [place] (CRAN[facility]- Medical PROBIOTIC Branch ORAL) vitamin C 2019-07 Yes 100mg Take 100 [facility] vers (VITAMIN C) 0-05 mg by ity of 100 mg 19:42: mouth [place] tablet 06 daily. Medical Branch aspirin 81 2019-07 Yes 81mg Take 81 mg [facility] nivers mg chewable 0-05 by mouth ity of tablet 19:42: daily. Medical [facility] DIPHENHYDRA 2019-07 Yes Take by Un rishabh MINE HCL 0-05 mouth. ity of (NIGHT TIME 19:42: [place] SLEEP AID Medical ORAL) Branch docosahexan 2019-07 Yes Take by Un rishabh oic 0-05 mouth. ity of acid/epa 19:42: [place] (FISH OIL Medical ORAL) Branch homeopathic 2019-07 Yes Take by Un r[facility] drugs 0-05 mouth. ity of (INSOMNIA 19:42: [place] PLUS ORAL) Medical Branch clopidogreL 2019-07 Yes 75mg Take 75 mg [facility] 75 mg 0-05 by mouth ity of tablet 19:42: daily. [place] [address] Medical Branch simvastatin 2019-07 Yes 10mg Take 10 mg [facility] 10 mg 0-05 by mouth ity of tablet 19:42: at [place] [address] bedtime. Medical [facility] fenofibrate 2019-07 Yes 145mg Take 145 U nivers 145 mg 0-05 mg by ity of tablet 19:42: mouth [place] [address] daily. Medical Branch metFORMIN 2019-07 Yes 500mg Take 500 [facility] vers 500 mg 0-05 mg by ity of tablet 19:42: mouth 2 [place] (two) Medical times Branch daily with meals. escitalopra 2019-07 Yes 10mg Take 10 mg [facility] m oxalate 0-05 by mouth ity of 10 mg 19:42: daily. [place] tablet Medical [facility] nitrofurant 2019-07 Yes 100mg Take 100 U nivers oin 50 mg 0-05 mg by ity of capsule 19:42: mouth [place] [address] every 6 Medical (six) Branch hours. cranberry/B 2019-07 Yes Take by Un rishabh .coagulan/C 0-05 mouth. ity of /calcium 19:42: [place] (CRAN[facility]ERR[facility]- Medical PROBIOTIC Branch ORAL) vitamin C 2019-07 Yes 100mg Take 100 [facility] vers (VITAMIN C) 0-05 mg by ity of 100 mg 19:42: mouth [place] tablet 06 daily. Medical Branch aspirin 81 2019-07 Yes 81mg Take 81 mg U nivers mg chewable 0-05 by mouth ity of tablet 19:42: daily. Medical Branch DIPHENHYDRA 2019-07 Yes Take by Un rishabh MINE HCL 0-05 mouth. ity of (NIGHT TIME 19:42: [place] SLEEP AID Medical ORAL) Branch docosahexan 2019-07 Yes Take by Un rishabh oic 0-05 mouth. ity of acid/epa 19:42: [place] (FISH OIL Medical ORAL) Branch homeopathic 2019-07 Yes Take by Un r[facility] drugs 0-05 mouth. ity of (INSOMNIA 19:42: [place] PLUS ORAL) 06 Medical Branch clopidogreL 2019-07 Yes 75mg Take 75 mg [facility] 75 mg 0-05 by mouth ity of tablet 19:42: daily. [place] [address] Medical Branch simvastatin 2019- Yes 10mg Take 10 mg [facility] 10 mg 0-05 by mouth ity of tablet 19:42: at [place] [address] bedtime. Medical Branch fenofibrate 2019-07 Yes 145mg Take 145 U nivers 145 mg 0-05 mg by ity of tablet 19:42: mouth [place] 06 daily. Medical [facility] metFORMIN 2019-07 Yes 500mg Take 500 [facility] vers 500 mg 0-05 mg by ity of tablet 19:42: mouth 2 [place] [address] (two) Medical times Branch daily with meals. escitalopra 2019-07 Yes 10mg Take 10 mg [facility] m oxalate 0-05 by mouth ity of 10 mg 19:42: daily. [place] tablet Medical Branch nitrofurant 2019-07 Yes 100mg Take 100 U nivers oin 50 mg 0-05 mg by ity of capsule 19:42: mouth [place] [address] every 6 Medical (six) Branch hours. cranberry/B 2019-07 Yes Take by Un rishabh .coagulan/C 0-05 mouth. ity of /calcium 19:42: [place] (CRANBERRY- Medical PROBIOTIC Branch ORAL) vitamin C 2019-07 Yes 100mg Take 100 [facility] vers (VITAMIN C) 0-05 mg by ity of 100 mg 19:42: mouth [place] tablet 06 daily. Medical Branch aspirin 81 2019-07 Yes 81mg Take 81 mg U nivers mg chewable 0-05 by mouth ity of tablet 19:42: daily. [place] [address] Medical Branch DIPHENHYDRA 2019-07 Yes Take by Un rishabh MINE HCL 0-05 mouth. ity of (NIGHT TIME 19:42: [place] SLEEP AID Medical ORAL) Branch docosahexan 2019-07 Yes Take by Un rishabh oic 0-05 mouth. ity of acid/epa 19:42: [place] (FISH OIL Medical ORAL) Branch homeopathic 2019-07 Yes Take by Un r[facility] drugs 0-05 mouth. ity of (INSOMNIA 19:42: [place] PLUS ORAL) Medical Branch clopidogreL 2019-07 Yes 75mg Take 75 mg [facility] 75 mg 0-05 by mouth ity of tablet 19:42: daily. [facility] simvastatin 2019-07 Yes 10mg Take 10 mg [facility] 10 mg 0-05 by mouth ity of tablet 19:42: at [place] [address] bedtime. Medical Branch fenofibrate 2019-07 Yes 145mg Take 145 U nivers 145 mg 0-05 mg by ity of tablet 19:42: mouth [place] 06 daily. Medical Branch metFORMIN 2019-07 Yes 500mg Take 500 [facility] vers 500 mg 0-05 mg by ity of tablet 19:42: mouth 2 [place] [address] (two) Medical times Branch daily with meals. escitalopra 2019-07 Yes 10mg Take 10 mg [facility] m oxalate 0-05 by mouth ity of 10 mg 19:42: daily. [place] tablet Medical Branch nitrofurant 2019-07 Yes 100mg Take 100 U nivers oin 50 mg 0-05 mg by ity of capsule 19:42: mouth [place] every 6 Medical (six) Branch hours. cranberry/B 2019-07 Yes Take by Un rishabh .coagulan/C 0-05 mouth. ity of /calcium 19:42: [place] (CRANBERRY- Medical PROBIOTIC Branch ORAL) vitamin C 2019-07 Yes 100mg Take 100 [facility] vers (VITAMIN C) 0-05 mg by ity of 100 mg 19:42: mouth [place] tablet 06 daily. Medical Branch aspirin 81 2019-07 Yes 81mg Take 81 mg U nivers mg chewable 0-05 by mouth ity of tablet 19:42: daily. [place] [address] Medical Branch DIPHENHYDRA 2019-07 Yes Take by Un rishabh MINE HCL 0-05 mouth. ity of (NIGHT TIME 19:42: [place] SLEEP AID Medical ORAL) Branch docosahexan 2019-07 Yes Take by Un rishabh oic 0-05 mouth. ity of acid/epa 19:42: [place] (FISH OIL Medical ORAL) Branch homeopathic 2019-07 Yes Take by Un r[facility] drugs 0-05 mouth. ity of (INSOMNIA 19:42: [place] PLUS ORAL) Medical Branch clopidogreL 2019-07 Yes 75mg Take 75 mg [facility] 75 mg 0-05 by mouth ity of tablet 19:42: daily. Medical Branch simvastatin 2019- Yes 10mg Take 10 mg [facility] 10 mg 0-05 by mouth ity of tablet 19:42: at [place] 06 bedtime. Medical Branch fenofibrate 2019-07 Yes 145mg Take 145 U nivers 145 mg 0-05 mg by ity of tablet 19:42: mouth [place] 06 daily. Medical Branch metFORMIN 2019-07 Yes 500mg Take 500 [facility] vers 500 mg 0-05 mg by ity of tablet 19:42: mouth 2 (two) Medical times Branch daily with meals. escitalopra 2019-07 Yes 10mg Take 10 mg [facility] m oxalate 0-05 by mouth ity of 10 mg 19:42: daily. [facility] Branch nitrofurant 2019-07 Yes 100mg Take 100 U nivers oin 50 mg 0-05 mg by ity of capsule 19:42: mouth [place] 06 every 6 Medical (six) Branch hours. cranberry/B 2019-07 Yes Take by Un rishabh .coagulan/C 0-05 mouth. ity of /calcium 19:42: [place] (CRAN[facility]ERR[facility]- Medical PROBIOTIC Branch ORAL) vitamin C 2019-07 Yes 100mg Take 100 [facility] vers (VITAMIN C) 0-05 mg by ity of 100 mg 19:42: mouth [place] tablet 06 daily. Medical Branch aspirin 81 2019-07 Yes 81mg Take 81 mg U nivers mg chewable 0-05 by mouth ity of tablet 19:42: daily. Medical Branch DIPHENHYDRA 2019-07 Yes Take by Un rishabh MINE HCL 0-05 mouth. ity of (NIGHT TIME 19:42: [place] SLEEP AID Medical ORAL) Branch docosahexan 2019-07 Yes Take by Un rishab[facility] oic 0-05 mouth. ity of acid/epa 19:42: [place] (FISH OIL Medical ORAL) Branch homeopathic 2019-07 Yes Take by Un r[facility] drugs 0-05 mouth. ity of (INSOMNIA 19:42: [place] PLUS ORAL) Medical Branch clopidogreL 2019-07 Yes 75mg Take 75 mg [facility] 75 mg 0-05 by mouth ity of tablet 19:42: daily. Medical Branch simvastatin 2019-07 Yes 10mg Take 10 mg [facility] 10 mg 0-05 by mouth ity of tablet 19:42: at [place] [address] bedtime. Medical Branch fenofibrate 2019-07 Yes 145mg Take 145 U nivers 145 mg 0-05 mg by ity of tablet 19:42: mouth [place] daily. Medical Branch metFORMIN 2019-07 Yes 500mg Take 500 [facility] vers 500 mg 0-05 mg by ity of tablet 19:42: mouth 2 [place] [address] (two) Medical times Branch daily with meals. escitalopra 2019-07 Yes 10mg Take 10 mg [facility] m oxalate 0-05 by mouth ity of 10 mg 19:42: daily. [place] tablet Medical Branch aspirin 81 2019-07 Yes 81mg Take 81 mg U nivers mg chewable 0-05 by mouth ity of tablet 19:42: daily. [place] [address] Medical Branch nitrofurant 2019-07 Yes 100mg Take 100 U nivers oin 50 mg 0-05 mg by ity of capsule 19:42: mouth [place] [address] every 6 Medical (six) Branch hours. cranberry/B 2019-07 Yes Take by Un rishabh .coagulan/C 0-05 mouth. ity of /calcium 19:42: [place] (CRANBERRY- Medical PROBIOTIC Branch ORAL) vitamin C 2019-07 Yes 100mg Take 100 [facility] vers (VITAMIN C) 0-05 mg by ity of 100 mg 19:42: mouth [place] tablet 06 daily. Medical Branch aspirin 81 2019-07 Yes 81mg Take 81 mg U nivers mg chewable 0-05 by mouth ity of tablet 19:42: daily. [place] [address] Medical Branch DIPHENHYDRA 2019-07 Yes Take by Un rishabh MINE HCL 0-05 mouth. ity of (NIGHT TIME 19:42: [place] SLEEP AID Medical ORAL) Branch docosahexan 2019-07 Yes Take by Un rishabh oic 0-05 mouth. ity of acid/epa 19:42: [place] (FISH OIL Medical ORAL) Branch homeopathic 2019-07 Yes Take by Un r[facility]ab[facility] drugs 0-05 mouth. ity of (INSOMNIA 19:42: [place] PLUS ORAL) Medical Branch DIPHENHYDRA 2019-07 Yes Take by Un rishabh MINE HCL 0-05 mouth. ity of (NIGHT TIME 19:42: [place] SLEEP AID Medical ORAL) Branch clopidogreL 2019-07 Yes 75mg Take 75 mg [facility] 75 mg 0-05 by mouth ity of tablet 19:42: daily. [place] [address] Medical Branch simvastatin 2019-07 Yes 10mg Take 10 mg [facility] 10 mg 0-05 by mouth ity of tablet 19:42: at [place] [address] bedtime. Medical Branch fenofibrate 2019- Yes 145mg Take 145 U nivers 145 mg 0-05 mg by ity of tablet 19:42: mouth [place] 06 daily. Medical Branch metFORMIN 2019-07 Yes 500mg Take 500 [facility] vers 500 mg 0-05 mg by ity of tablet 19:42: mouth 2 [place] (two) Medical times Branch daily with meals. escitalopra 2019-07 Yes 10mg Take 10 mg [facility] m oxalate 0-05 by mouth ity of 10 mg 19:42: daily. [place] tablet Medical Branch nitrofurant 2019-07 Yes 100mg Take 100 U nivers oin 50 mg 0-05 mg by ity of capsule 19:42: mouth [place] [address] every 6 Medical (six) Branch hours. cranberry/B 2019-07 Yes Take by Un rishabh .coagulan/C 0-05 mouth. ity of /calcium 19:42: [place] (CRANBERRY- Medical PROBIOTIC Branch ORAL) vitamin C 2019-07 Yes 100mg Take 100 [facility] vers (VITAMIN C) 0-05 mg by ity of 100 mg 19:42: mouth [place] tablet 06 daily. Medical Branch docosahexan 2019-07 Yes Take by Un rishabh oic 0-05 mouth. ity of acid/epa 19:42: [place] (FISH OIL Medical ORAL) Branch aspirin 81 2019-07 Yes 81mg Take 81 mg U nivers mg chewable 0-05 by mouth ity of tablet 19:42: daily. [place] [address] Medical Branch DIPHENHYDRA 2019-07 Yes Take by Un rishabh MINE HCL 0-05 mouth. ity of (NIGHT TIME 19:42: [place] SLEEP AID Medical ORAL) Branch docosahexan 2019-07 Yes Take by Un rishabh oic 0-05 mouth. ity of acid/epa 19:42: [place] (FISH OIL Medical ORAL) Branch homeopathic 2019-07 Yes Take by Un r[facility] drugs 0-05 mouth. ity of (INSOMNIA 19:42: [place] PLUS ORAL) Medical Branch clopidogreL 2019-07 Yes 75mg Take 75 mg [facility] 75 mg 0-05 by mouth ity of tablet 19:42: daily. [place] [address] Medical Branch simvastatin 2019-07 Yes 10mg Take 10 mg [facility] 10 mg 0-05 by mouth ity of tablet 19:42: at [place] 06 bedtime. Medical Branch fenofibrate 2019-07 Yes 145mg Take 145 U nivers 145 mg 0-05 mg by ity of tablet 19:42: mouth [place] 06 daily. Medical Branch metFORMIN 2019-07 Yes 500mg Take 500 [facility] vers 500 mg 0-05 mg by ity of tablet 19:42: mouth 2 [place] (two) Medical times Branch daily with meals. homeopathic 2019-07 Yes Take by Un r[facility]ab[facility] drugs 0-05 mouth. ity of (INSOMNIA 19:42: [place] PLUS ORAL) Medical Branch escitalopra 2019-07 Yes 10mg Take 10 mg [facility] m oxalate 0-05 by mouth ity of 10 mg 19:42: daily. [place] tablet Medical Branch nitrofurant 2019-07 Yes 100mg Take 100 U nivers oin 50 mg 0-05 mg by ity of capsule 19:42: mouth [place] 06 every 6 Medical (six) Branch hours. cranberry/B 2019-07 Yes Take by Un rishabh .coagulan/C 0-05 mouth. ity of /calcium 19:42: [place] (CRANBERRY- Medical PROBIOTIC Branch ORAL) vitamin C 2019-07 Yes 100mg Take 100 [facility] vers (VITAMIN C) 0-05 mg by ity of 100 mg 19:42: mouth [place] tablet 06 daily. Medical Branch aspirin 81 2019-07 Yes 81mg Take 81 mg U nivers mg chewable 0-05 by mouth ity of tablet 19:42: daily. Medical Branch DIPHENHYDRA 2019-07 Yes Take by Un rishabh MINE HCL 0-05 mouth. ity of (NIGHT TIME 19:42: [place] SLEEP AID Medical ORAL) Branch docosahexan 2019-07 Yes Take by Un rishabh oic 0-05 mouth. ity of acid/epa 19:42: [place] (FISH OIL Medical ORAL) Branch homeopathic 2019-07 Yes Take by Un r[facility] drugs 0-05 mouth. ity of (INSOMNIA 19:42: [place] PLUS ORAL) Medical Branch clopidogreL 2019-07 Yes 75mg Take 75 mg [facility] 75 mg 0-05 by mouth ity of tablet 19:42: daily. [place] [address] Medical Branch simvastatin 2019-07 Yes 10mg Take 10 mg [facility] 10 mg 0-05 by mouth ity of tablet 19:42: at [place] [address] bedtime. Medical Branch fenofibrate 2019-07 Yes 145mg Take 145 U nivers 145 mg 0-05 mg by ity of tablet 19:42: mouth [place] 06 daily. Medical Branch metFORMIN 2019-07 Yes 500mg Take 500 Uni vers 500 mg 0-05 mg by ity of tablet 19:42: mouth 2 [place] 06 (two) Medical times Branch daily with meals. escitalopra 2019-07 Yes 10mg Take 10 mg [facility] m oxalate 0-05 by mouth ity of 10 mg 19:42: daily. [place] tablet Medical Branch nitrofurant 2019-07 Yes 100mg Take 100 U nivers oin 50 mg 0-05 mg by ity of capsule 19:42: mouth [place] 06 every 6 Medical (six) Branch hours. cranberry/B 2019-07 Yes Take by Un rishabh .coagulan/C 0-05 mouth. ity of /calcium 19:42: [place] (CRANBERRY- Medical PROBIOTIC Branch ORAL) vitamin C 2019-07 Yes 100mg Take 100 Uni vers (VITAMIN C) 0-05 mg by ity of 100 mg 19:42: mouth [place] tablet 06 daily. Medical Branch clopidogreL 2019-07 Yes 75mg Take 75 mg [facility] 75 mg 0-05 by mouth ity of tablet 19:42: daily. [place] [address] Medical Branch aspirin 81 2019-07 Yes 81mg Take 81 mg U nivers mg chewable 0-05 by mouth ity of tablet 19:42: daily. [place] [address] Medical Branch simvastatin 2019-07 Yes 10mg Take 10 mg [facility] 10 mg 0-05 by mouth ity of tablet 19:42: at [place] [address] bedtime. Medical Branch DIPHENHYDRA 2019-07 Yes Take by Un rishabh MINE HCL 0-05 mouth. ity of (NIGHT TIME 19:42: [place] SLEEP AID Medical ORAL) Branch docosahexan 2019-07 Yes Take by Un rishabh oic 0-05 mouth. ity of acid/epa 19:42: [place] (FISH OIL Medical ORAL) Branch homeopathic 2019-07 Yes Take by Un rishabh drugs 0-05 mouth. ity of (INSOMNIA 19:42: [place] PLUS ORAL) Medical Branch clopidogreL 2019-07 Yes 75mg Take 75 mg [facility] 75 mg 0-05 by mouth ity of tablet 19:42: daily. [place] [address] Medical Branch simvastatin 2019-07 Yes 10mg Take 10 mg [facility] 10 mg 0-05 by mouth ity of tablet 19:42: at [place] [address] bedtime. Medical Branch fenofibrate 2019- Yes 145mg Take 145 U nivers 145 mg 0-05 mg by ity of tablet 19:42: mouth [place] 06 daily. Medical Branch metFORMIN 2019-07 Yes 500mg Take 500 [facility] vers 500 mg 0-05 mg by ity of tablet 19:42: mouth 2 (two) Medical times Branch daily with meals. escitalopra 2019-07 Yes 10mg Take 10 mg [facility] m oxalate 0-05 by mouth ity of 10 mg 19:42: daily. [place] tablet Medical Branch nitrofurant 2019-07 Yes 100mg Take 100 U nivers oin 50 mg 0-05 mg by ity of capsule 19:42: mouth [place] every 6 Medical (six) Branch hours. fenofibrate 2019-07 Yes 145mg Take 145 U nivers 145 mg 0-05 mg by ity of tablet 19:42: mouth [place] [address] daily. Medical Branch cranberry/B 2019-07 Yes Take by Un rishabh .coagulan/C 0-05 mouth. ity of /calcium 19:42: [place] (CRANBERRY- Medical PROBIOTIC Branch ORAL) vitamin C 2019-07 Yes 100mg Take 100 [facility] vers (VITAMIN C) 0-05 mg by ity of 100 mg 19:42: mouth [place] tablet 06 daily. Medical Branch aspirin 81 2019-07 Yes 81mg Take 81 mg U nivers mg chewable 0-05 by mouth ity of tablet 19:42: daily. Medical Branch DIPHENHYDRA 2019-07 Yes Take by Un rishabh MINE HCL 0-05 mouth. ity of (NIGHT TIME 19:42: [place] SLEEP AID Medical ORAL) Branch docosahexan 2019-07 Yes Take by Un rishabh oic 0-05 mouth. ity of acid/epa 19:42: [place] (FISH OIL Medical ORAL) Branch homeopathic 2019-07 Yes Take by Un rishabh drugs 0-05 mouth. ity of (INSOMNIA 19:42: [place] PLUS ORAL) 06 Medical Branch metFORMIN 2019-07 Yes 500mg Take 500 [facility] vers 500 mg 0-05 mg by ity of tablet 19:42: mouth 2 (two) Medical times Branch daily with meals. clopidogreL 2019-07 Yes 75mg Take 75 mg [facility] 75 mg 0-05 by mouth ity of tablet 19:42: daily. Medical Branch simvastatin 2019-07 Yes 10mg Take 10 mg [facility] 10 mg 0-05 by mouth ity of tablet 19:42: at [place] bedtime. Medical Branch fenofibrate 2019-07 Yes 145mg Take 145 U nivers 145 mg 0-05 mg by ity of tablet 19:42: mouth [place] 06 daily. Medical Branch metFORMIN 2019-07 Yes 500mg Take 500 [facility] vers 500 mg 0-05 mg by ity of tablet 19:42: mouth 2 [place] (two) Medical times Branch daily with meals. escitalopra 2019-07 Yes 10mg Take 10 mg [facility] m oxalate 0-05 by mouth ity of 10 mg 19:42: daily. [place] tablet Medical Branch nitrofurant 2019-07 Yes 100mg Take 100 U nivers oin 50 mg 0-05 mg by ity of capsule 19:42: mouth [place] every 6 Medical (six) Branch hours. cranberry/B 2019-07 Yes Take by Un rishabh .coagulan/C 0-05 mouth. ity of /calcium 19:42: [place] (CRANBERRY- Medical PROBIOTIC Branch ORAL) vitamin C 2019-07 Yes 100mg Take 100 [facility] vers (VITAMIN C) 0-05 mg by ity of 100 mg 19:42: mouth [place] tablet 06 daily. Medical Branch escitalopra 2019-07 Yes 10mg Take 10 mg [facility] m oxalate 0-05 by mouth ity of 10 mg 19:42: daily. [place] tablet Medical Branch aspirin 81 2019-07 Yes 81mg Take 81 mg U nivers mg chewable 0-05 by mouth ity of tablet 19:42: daily. [place] [address] Medical Branch DIPHENHYDRA 2019-07 Yes Take by Un rishabh MINE HCL 0-05 mouth. ity of (NIGHT TIME 19:42: [place] SLEEP AID Medical ORAL) Branch docosahexan 2019-07 Yes Take by Un rishabh oic 0-05 mouth. ity of acid/epa 19:42: [place] (FISH OIL Medical ORAL) Branch homeopathic 2019-07 Yes Take by Un rishabh drugs 0-05 mouth. ity of (INSOMNIA 19:42: [place] PLUS ORAL) Medical Branch clopidogreL 2019-07 Yes 75mg Take 75 mg [facility] 75 mg 0-05 by mouth ity of tablet 19:42: daily. [place] [address] Medical Branch simvastatin 2019-07 Yes 10mg Take 10 mg [facility] 10 mg 0-05 by mouth ity of tablet 19:42: at [place] 06 bedtime. Medical Branch nitrofurant 2019-07 Yes 100mg Take 100 U nivers oin 50 mg 0-05 mg by ity of capsule 19:42: mouth [place] 06 every 6 Medical (six) Branch hours. fenofibrate 2019-07 Yes 145mg Take 145 U nivers 145 mg 0-05 mg by ity of tablet 19:42: mouth [place] 06 daily. Medical Branch metFORMIN 2019-07 Yes 500mg Take 500 [facility] vers 500 mg 0-05 mg by ity of tablet 19:42: mouth 2 [place] 06 (two) Medical times Branch daily with meals. escitalopra 2019-07 Yes 10mg Take 10 mg [facility] m oxalate 0-05 by mouth ity of 10 mg 19:42: daily. [place] tablet Medical Branch nitrofurant 2019-07 Yes 100mg Take 100 U nivers oin 50 mg 0-05 mg by ity of capsule 19:42: mouth [place] 06 every 6 Medical (six) Branch hours. cranberry/B 2019-07 Yes Take by Un rishabh .coagulan/C 0-05 mouth. ity of /calcium 19:42: [place] (CRANBERRY- Medical PROBIOTIC Branch ORAL) vitamin C 2019-07 Yes 100mg Take 100 [facility] vers (VITAMIN C) 0-05 mg by ity of 100 mg 19:42: mouth [place] tablet 06 daily. Medical Branch cranberry/B 2019-07 Yes Take by Un rishabh .coagulan/C 0-05 mouth. ity of /calcium 19:42: [place] (CRANBERRY- Medical PROBIOTIC Branch ORAL) aspirin 81 2019-07 Yes 81mg Take 81 mg U nivers mg chewable 0-05 by mouth ity of tablet 19:42: daily. [place] [address] Medical Branch DIPHENHYDRA 2019-07 Yes Take by Un rishabh MINE HCL 0-05 mouth. ity of (NIGHT TIME 19:42: [place] SLEEP AID Medical ORAL) Branch docosahexan 2019-07 Yes Take by Un rishabh oic 0-05 mouth. ity of acid/epa 19:42: [place] (FISH OIL Medical ORAL) Branch homeopathic 2019-07 Yes Take by Un rishabh drugs 0-05 mouth. ity of (INSOMNIA 19:42: [place] PLUS ORAL) Medical Branch clopidogreL 2019-07 Yes 75mg Take 75 mg [facility] 75 mg 0-05 by mouth ity of tablet 19:42: daily. Medical Branch simvastatin 2020- Yes 10mg Take 10 mg [facility] 10 mg 0-05 by mouth ity of tablet 19:42: at [place] 06 bedtime. Medical Branch fenofibrate 2019- Yes 145mg Take 145 U nivers 145 mg 0-05 mg by ity of tablet 19:42: mouth [place] 06 daily. Medical Branch metFORMIN 2019-07 Yes 500mg Take 500 [facility] vers 500 mg 0-05 mg by ity of tablet 19:42: mouth 2 [place] 06 (two) Medical times Branch daily with meals. vitamin C 2019-07 Yes 100mg Take 100 [facility] vers (VITAMIN C) 0-05 mg by ity of 100 mg 19:42: mouth [place] tablet 06 daily. Medical Branch escitalopra 2019-07 Yes 10mg Take 10 mg [facility] m oxalate 0-05 by mouth ity of 10 mg 19:42: daily. [place] tablet Medical Branch nitrofurant 2019-07 Yes 100mg Take 100 U nivers oin 50 mg 0-05 mg by ity of capsule 19:42: mouth [place] every 6 Medical (six) Branch hours. cranberry/B 2019-07 Yes Take by Un rishabh .coagulan/C 0-05 mouth. ity of /calcium 19:42: [place] (CRANBERRY- Medical PROBIOTIC Branch ORAL) vitamin C 2019-07 Yes 100mg Take 100 [facility] vers (VITAMIN C) 0-05 mg by ity of 100 mg 19:42: mouth [place] tablet 06 daily. Medical Branch aspirin 81 2019-07 Yes 81mg Take 81 mg U nivers mg chewable 0-05 by mouth ity of tablet 19:42: daily. Medical Branch DIPHENHYDRA 2019-07 Yes Take by Un rishabh MINE HCL 0-05 mouth. ity of (NIGHT TIME 19:42: [place] SLEEP AID Medical ORAL) Branch docosahexan 2019-07 Yes Take by Un rishabh oic 0-05 mouth. ity of acid/epa 19:42: [place] (FISH OIL Medical ORAL) Branch homeopathic 2019- Yes Take by Un rishabh drugs 0-05 mouth. ity of (INSOMNIA 19:42: [place] PLUS ORAL) Medical Branch clopidogreL 2019-07 Yes 75mg Take 75 mg [facility] 75 mg 0-05 by mouth ity of tablet 19:42: daily. Medical Branch simvastatin 2019- Yes 10mg Take 10 mg [facility] 10 mg 0-05 by mouth ity of tablet 19:42: at [place] [address] bedtime. Medical Branch fenofibrate 2019-07 Yes 145mg Take 145 U nivers 145 mg 0-05 mg by ity of tablet 19:42: mouth [place] 06 daily. Medical Branch metFORMIN 2019-07 Yes 500mg Take 500 [facility] vers 500 mg 0-05 mg by ity of tablet 19:42: mouth 2 (two) Medical times Branch daily with meals. escitalopra 2019-07 Yes 10mg Take 10 mg [facility] m oxalate 0-05 by mouth ity of 10 mg 19:42: daily. [facility] Medical Branch nitrofurant 2019-07 Yes 100mg Take 100 U nivers oin 50 mg 0-05 mg by ity of capsule 19:42: mouth every 6 Medical (six) Branch hours. cranberry/B 2019-07 Yes Take by Un rishabh .coagulan/C 0-05 mouth. ity of /calcium 19:42: [place] (CRANBERRY- Medical PROBIOTIC Branch ORAL) vitamin C 2019-07 Yes 100mg Take 100 Uni vers (VITAMIN C) 0-05 mg by ity of 100 mg 19:42: mouth [place] tablet 06 daily. Medical Branch aspirin 81 2019-07 Yes 81mg Take 81 mg U nivers mg chewable 0-05 by mouth ity of tablet 19:42: daily. Medical Branch DIPHENHYDRA 2019-07 Yes Take by Un rishabh MINE HCL 0-05 mouth. ity of (NIGHT TIME 19:42: [place] SLEEP AID Medical ORAL) Branch docosahexan 2019-07 Yes Take by Un rishabh oic 0-05 mouth. ity of acid/epa 19:42: [place] (FISH OIL Medical ORAL) Branch homeopathic 2019-07 Yes Take by Un rishabh drugs 0-05 mouth. ity of (INSOMNIA 19:42: [place] PLUS ORAL) Medical Branch clopidogreL 2019- Yes 75mg Take 75 mg [facility] 75 mg 0-05 by mouth ity of tablet 19:42: daily. Medical Branch simvastatin 2019-07 Yes 10mg Take 10 mg [facility] 10 mg 0-05 by mouth ity of tablet 19:42: at [place] [address] bedtime. Medical Branch fenofibrate 2019-07 Yes 145mg Take 145 U nivers 145 mg 0-05 mg by ity of tablet 19:42: mouth [place] 06 daily. Medical Branch metFORMIN 2019-07 Yes 500mg Take 500 [facility] vers 500 mg 0-05 mg by ity of tablet 19:42: mouth 2 (two) Medical times Branch daily with meals. escitalopra 2019-07 Yes 10mg Take 10 mg [facility] m oxalate 0-05 by mouth ity of 10 mg 19:42: daily. [place] tablet Medical Branch nitrofurant 2019-07 Yes 100mg Take 100 U nivers oin 50 mg 0-05 mg by ity of capsule 19:42: mouth [place] 06 every 6 Medical (six) Branch hours. cranberry/B 2019-07 Yes Take by Un rishabh .coagulan/C 0-05 mouth. ity of /calcium 19:42: [place] (CRANBERRY- Medical PROBIOTIC Branch ORAL) vitamin C 2019-07 Yes 100mg Take 100 Uni vers (VITAMIN C) 0-05 mg by ity of 100 mg 19:42: mouth [place] tablet 06 daily. Medical Branch aspirin 81 2019-07 Yes 81mg Take 81 mg U nivers mg chewable 0-05 by mouth ity of tablet 19:42: daily. Medical Branch DIPHENHYDRA 2019-07 Yes Take by Un rishabh MINE HCL 0-05 mouth. ity of (NIGHT TIME 19:42: [place] SLEEP AID Medical ORAL) Branch docosahexan 2019-07 Yes Take by Un rishabh oic 0-05 mouth. ity of acid/epa 19:42: [place] (FISH OIL Medical ORAL) Branch homeopathic 2019-07 Yes Take by Un rishabh drugs 0-05 mouth. ity of (INSOMNIA 19:42: [place] PLUS ORAL) Medical Branch clopidogreL 2019-07 Yes 75mg Take 75 mg [facility] 75 mg 0-05 by mouth ity of tablet 19:42: daily. Medical Branch simvastatin 2019-07 Yes 10mg Take 10 mg [facility] 10 mg 0-05 by mouth ity of tablet 19:42: at [place] [address] bedtime. Medical Branch fenofibrate 2019-07 Yes 145mg Take 145 U nivers 145 mg 0-05 mg by ity of tablet 19:42: mouth [place] 06 daily. Medical Branch metFORMIN 2019-07 Yes 500mg Take 500 Uni vers 500 mg 0-05 mg by ity of tablet 19:42: mouth 2 (two) Medical times Branch daily with meals. escitalopra 2019-07 Yes 10mg Take 10 mg [facility] m oxalate 0-05 by mouth ity of 10 mg 19:42: daily. [place] tablet Medical Branch nitrofurant 2019-07 Yes 100mg Take 100 U nivers oin 50 mg 0-05 mg by ity of capsule 19:42: mouth [place] 06 every 6 Medical (six) Branch hours. cranberry/B 2019-07 Yes Take by Un rishabh .coagulan/C 0-05 mouth. ity of /calcium 19:42: [place] (CRANBERRY- Medical PROBIOTIC Branch ORAL) vitamin C 2019-07 Yes 100mg Take 100 Uni vers (VITAMIN C) 0-05 mg by ity of 100 mg 19:42: mouth [place] tablet 06 daily. Medical Branch aspirin 81 2019-07 Yes 81mg Take 81 mg U nivers mg chewable 0-05 by mouth ity of tablet 19:42: daily. Medical Branch DIPHENHYDRA 2019-07 Yes Take by Un rishabh MINE HCL 0-05 mouth. ity of (NIGHT TIME 19:42: [place] SLEEP AID Medical ORAL) Branch docosahexan 2019-07 Yes Take by Un rishabh oic 0-05 mouth. ity of acid/epa 19:42: [place] (FISH OIL Medical ORAL) Branch homeopathic 2019-07 Yes Take by Un rishabh drugs 0-05 mouth. ity of (INSOMNIA 19:42: [place] PLUS ORAL) Medical Branch clopidogreL 2019-07 Yes 75mg Take 75 mg [facility] 75 mg 0-05 by mouth ity of tablet 19:42: daily. [place] Medical Branch simvastatin 2019-07 Yes 10mg Take 10 mg [facility] 10 mg 0-05 by mouth ity of tablet 19:42: at [place] [address] bedtime. Medical Branch fenofibrate 2019-07 Yes 145mg Take 145 U nivers 145 mg 0-05 mg by ity of tablet 19:42: mouth [place] 06 daily. Medical Branch metFORMIN 2019-07 Yes 500mg Take 500 Uni vers 500 mg 0-05 mg by ity of tablet 19:42: mouth 2 (two) Medical times Branch daily with meals. escitalopra 2019-07 Yes 10mg Take 10 mg [facility] m oxalate 0-05 by mouth ity of 10 mg 19:42: daily. [place] tablet Medical Branch nitrofurant 2019-07 Yes 100mg Take 100 U nivers oin 50 mg 0-05 mg by ity of capsule 19:42: mouth [place] every 6 Medical (six) Branch hours. cranberry/B 2019-07 Yes Take by Un rishabh .coagulan/C 0-05 mouth. ity of /calcium 19:42: [place] (CRANBERRY- Medical PROBIOTIC Branch ORAL) vitamin C 2019- Yes 100mg Take 100 Uni vers (VITAMIN C) 0-05 mg by ity of 100 mg 19:42: mouth [place] tablet 06 daily. Medical Branch aspirin 81 2019-07 Yes 81mg Take 81 mg U nivers mg chewable 0-05 by mouth ity of tablet 19:42: daily. Medical Branch DIPHENHYDRA 2019-07 Yes Take by Un rishabh MINE HCL 0-05 mouth. ity of (NIGHT TIME 19:42: [place] SLEEP AID Medical ORAL) Branch docosahexan 2019-07 Yes Take by Un rishabh oic 0-05 mouth. ity of acid/epa 19:42: [place] (FISH OIL Medical ORAL) Branch homeopathic 2019-07 Yes Take by Un rishabh drugs 0-05 mouth. ity of (INSOMNIA 19:42: [place] PLUS ORAL) Medical Branch clopidogreL 2019-07 Yes 75mg Take 75 mg [facility] 75 mg 0-05 by mouth ity of tablet 19:42: daily. Medical Branch simvastatin 2019- Yes 10mg Take 10 mg [facility] 10 mg 0-05 by mouth ity of tablet 19:42: at [place] [address] bedtime. Medical Branch fenofibrate 2019- Yes 145mg Take 145 U nivers 145 mg 0-05 mg by ity of tablet 19:42: mouth [place] 06 daily. Medical Branch metFORMIN 2020- Yes 500mg Take 500 Uni vers 500 mg 0-05 mg by ity of tablet 19:42: mouth 2 [place] (two) Medical times Branch daily with meals. escitalopra 2019- Yes 10mg Take 10 mg [facility] m oxalate 0-05 by mouth ity of 10 mg 19:42: daily. [place] tablet Medical Branch nitrofurant 2019-07 Yes 100mg Take 100 U nivers oin 50 mg 0-05 mg by ity of capsule 19:42: mouth [place] [address] every 6 Medical (six) Branch hours. cranberry/B 2019-07 Yes Take by Un rishabh .coagulan/C 0-05 mouth. ity of /calcium 19:42: [place] (CRANBERRY- Medical PROBIOTIC Branch ORAL) aspirin 81 2019-07 Yes 81mg Take 81 mg U nivers mg chewable 0-05 by mouth ity of tablet 14:42: daily. Medical Branch DIPHENHYDRA 2019-07 Yes Take by Un rishabh MINE HCL 0-05 mouth. ity of (NIGHT TIME 14:42: [place] SLEEP AID Medical ORAL) Branch docosahexan 2019-07 Yes Take by Un rishabh oic 0-05 mouth. ity of acid/epa 14:42: [place] (FISH OIL Medical ORAL) Branch homeopathic 2019-07 Yes Take by Un rishabh drugs 0-05 mouth. ity of (INSOMNIA 14:42: [place] PLUS ORAL) Medical Branch clopidogreL 2019-07 Yes 75mg Take 75 mg [facility] 75 mg 0-05 by mouth ity of tablet 14:42: daily. Medical Branch simvastatin 2019-07 Yes 10mg Take 10 mg [facility] 10 mg 0-05 by mouth ity of tablet 14:42: at [place] 06 bedtime. Medical Branch fenofibrate 2019-07 Yes 145mg Take 145 U nivers 145 mg 0-05 mg by ity of tablet 14:42: mouth [place] 06 daily. Medical Branch metFORMIN 2019-07 Yes 500mg Take 500 Uni vers 500 mg 0-05 mg by ity of tablet 14:42: mouth 2 [place] 06 (two) Medical times Branch daily with meals. escitalopra 2019-07 Yes 10mg Take 10 mg [facility] m oxalate 0-05 by mouth ity of 10 mg 14:42: daily. [place] tablet Medical Branch nitrofurant 2019-07 Yes 100mg Take 100 U nivers oin 50 mg 0-05 mg by ity of capsule 14:42: mouth [place] 06 every 6 Medical (six) Branch hours. cranberry/B 2019-07 Yes Take by Un rishabh .coagulan/C 0-05 mouth. ity of /calcium 14:42: [place] (CRANBERRY- Medical PROBIOTIC Branch ORAL) vitamin C 2019-07 Yes 100mg Take 100 Uni vers (VITAMIN C) 0-05 mg by ity of 100 mg 14:42: mouth [place] tablet 06 daily. Medical Branch aspirin 81 2019-07 Yes 81mg Take 81 mg U nivers mg chewable 0-05 by mouth ity of tablet 14:42: daily. Medical Branch DIPHENHYDRA 2019-07 Yes Take by Un rishabh MINE HCL 0-05 mouth. ity of (NIGHT TIME 14:42: [place] SLEEP AID Medical ORAL) Branch docosahexan 2019-07 Yes Take by Un rishabh oic 0-05 mouth. ity of acid/epa 14:42: [place] (FISH OIL Medical ORAL) Branch homeopathic 2019-07 Yes Take by Un rishabh drugs 0-05 mouth. ity of (INSOMNIA 14:42: [place] PLUS ORAL) Medical Branch clopidogreL 2019-07 Yes 75mg Take 75 mg [facility] 75 mg 0-05 by mouth ity of tablet 14:42: daily. Medical Branch simvastatin 2019-07 Yes 10mg Take 10 mg [facility] 10 mg 0-05 by mouth ity of tablet 14:42: at [place] [address] bedtime. Medical Branch fenofibrate 2019-07 Yes 145mg Take 145 U nivers 145 mg 0-05 mg by ity of tablet 14:42: mouth [place] 06 daily. Medical Branch metFORMIN 2019-07 Yes 500mg Take 500 Uni vers 500 mg 0-05 mg by ity of tablet 14:42: mouth 2 [place] (two) Medical times Branch daily with meals. escitalopra 2019-07 Yes 10mg Take 10 mg [facility] m oxalate 0-05 by mouth ity of 10 mg 14:42: daily. [place] tablet Medical Branch nitrofurant 2019-07 Yes 100mg Take 100 U nivers oin 50 mg 0-05 mg by ity of capsule 14:42: mouth [place] every 6 Medical (six) Branch hours. cranberry/B 2019-07 Yes Take by Un rishabh .coagulan/C 0-05 mouth. ity of /calcium 14:42: [place] (CRANBERRY- Medical PROBIOTIC Branch ORAL) vitamin C 2019-07 Yes 100mg Take 100 Uni vers (VITAMIN C) 0-05 mg by ity of 100 mg 14:42: mouth [place] tablet 06 daily. Medical Branch aspirin 81 2019-07 Yes 81mg Take 81 mg U nivers mg chewable 0-05 by mouth ity of tablet 14:42: daily. Medical Branch DIPHENHYDRA 2019-07 Yes Take by Un rishabh MINE HCL 0-05 mouth. ity of (NIGHT TIME 14:42: [place] SLEEP AID Medical ORAL) Branch docosahexan 2019-07 Yes Take by Un rishabh oic 0-05 mouth. ity of acid/epa 14:42: [place] (FISH OIL Medical ORAL) Branch homeopathic 2019-07 Yes Take by Un rishabh drugs 0-05 mouth. ity of (INSOMNIA 14:42: [place] PLUS ORAL) 06 Medical Branch clopidogreL 2019-07 Yes 75mg Take 75 mg [facility] 75 mg 0-05 by mouth ity of tablet 14:42: daily. [place] Medical Branch simvastatin 2019-07 Yes 10mg Take 10 mg [facility] 10 mg 0-05 by mouth ity of tablet 14:42: at [place] 06 bedtime. Medical Branch fenofibrate 2019-07 Yes 145mg Take 145 U nivers 145 mg 0-05 mg by ity of tablet 14:42: mouth [place] 06 daily. Medical Branch metFORMIN 2019-07 Yes 500mg Take 500 Uni vers 500 mg 0-05 mg by ity of tablet 14:42: mouth 2 (two) Medical times Branch daily with meals. escitalopra 2019-07 Yes 10mg Take 10 mg [facility] m oxalate 0-05 by mouth ity of 10 mg 14:42: daily. [place] tablet Medical Branch nitrofurant 2019-07 Yes 100mg Take 100 U nivers oin 50 mg 0-05 mg by ity of capsule 14:42: mouth [place] every 6 Medical (six) Branch hours. cranberry/B 2019-07 Yes Take by Un rishabh .coagulan/C 0-05 mouth. ity of /calcium 14:42: [place] (CRANBERRY- Medical PROBIOTIC Branch ORAL) vitamin C 2019-07 Yes 100mg Take 100 Uni vers (VITAMIN C) 0-05 mg by ity of 100 mg 14:42: mouth [place] tablet 06 daily. Medical Branch ticagrelor Yes 90 mg = 1 Me moria 90 mg oral 08-11 tab, PO, l tablet 15:30: [id number], # [place] 00 180 tab, 3 Refill(s) Aspirin 81 No Notes: Do Me moria MG Enteric 08-11 not crush l Coated 15:00: or chew. [place] Tablet 00 (Same As: Ecotrin) Escitalopra No Notes: [place] á[place]ela m 08-11 (Same as: l 15:00: Lexapro) [place] 00 Fenofibrate No Notes: Te[place] ángela 145 MG Oral 08-11 (Same as: l Tablet 15:00: Tricor) Ticagrelor No Notes: Memor ia 08-11 (Same as: l 07:00: Brilinta) montelukast No Notes: [place] á[place] 08-11 (Same l 03:00: as:Singula ir) Simvastatin No Notes: [place] 08-11 (Same as: l 03:00: Zocor) Zofran No 4 mg, Memoria 08-10 Route: l 21:47: IVP, Drug form: INJ, ONCE, Dosing Weight 100, kg, Priority: STAT, Start date: 08/10/19 15:47:00 [employer], Stop date: 08/10/19 15:47:00 [employer] Sodium No 750 mL, Memoria Chloride 08-10 Rate: 75 l 0.9% IV 750 17:55: ml/hr, Herm Infuse over: 10 hr, Route: IV, Dosing Weight 100 kg, Total Volume: 750, Start date: 08/10/19 11:55:00 [employer], Duration: 10 hr, Stop date: 08/10/19 21:54:00 [employer], 2.22, m2, 0 Ticagrelor No Notes: Memor ia 08-10 (Same as: l 17:55: Brilinta) Nitroglycer No Notes: Te[place] ángela in 08-10 (Same l 17:55: as:Nitroqu ick, Nitrostat) "Do Not Crush" Sublingual tablet Acetaminoph No Notes: Do M emoria en 08-10 not exceed l 17:55: 4 gm/day. (Same as: Tylenol) Ondansetron No Notes: Tej ángela 08-10 (Same as: l 17:55: Zofran) montelukast Yes 10 mg = 1 M emoria 10 mg oral 30 tab, PO, l tablet 13:35: Bedtime, # [place] nn 00 30 tab, 0 Refill(s) Fenofibrate 2019-0 Yes 145 mg = 1 [facility]oria 145 MG Oral 1-30 tab, PO, l Tablet 13:35: Daily, # [place] 00 30 tab, 0 Refill(s) Metformin 2019-0 Yes 500 mg, Memor ia 1-30 PO, Daily, l 13:35: 0 [place] 00 Refill(s) Diphenhydra 2019-0 Yes 25 mg, PO, Memoria mine 1-30 Bedtime, 0 l 13:35: Refill(s) [place] Omeprazole 2019-0 Yes 20 mg, PO, M emoria 1-30 Daily, 0 l 13:35: Refill(s) [place] 00 escitalopra 2019-0 Yes 10 mg = 1 M emoria m 10 mg 1-30 tab, PO, l oral tablet 13:35: Daily, # [place] 00 30 tab, 0 Refill(s) Simvastatin 2019-0 Yes 10 mg = 1 M emoria 1-30 tab, PO, l 13:35: Bedtime, # [place] 00 30 tab, 0 Refill(s) docosahexan 2017-07 Yes Take by Un rishabh oic 1-15 mouth. ity of acid/epa 19:38: [place] (FISH OIL 16 Medical ORAL) Branch homeopathic 2017-07 Yes Take by Un rishabh drugs 1-15 mouth. ity of (INSOMNIA 19:38: [place] PLUS ORAL) 16 Medical Branch aspirin 81 2017-07 Yes 81mg Take 81 mg U nivers mg chewable 1-15 by mouth ity of tablet 19:35: daily. [place] [address] Medical Branch DIPHENHYDRA 2017-07 Yes Take by Un rishabh MINE HCL 1-15 mouth. ity of (NIGHT TIME 19:35: [place] SLEEP AID 13 Medical ORAL) Branch estradiol 2017-07 Yes [id number] 2g Insert 2 g [facility] 0.01 % (0.1 1-15 into ity of mg/gram) 00:00: vagina [place] vaginal 00 weekly. Medical cream Branch estradiol 2017-07 Yes [id number] 2g Insert 2 g [facility] 0.01 % (0.1 1-15 into ity of mg/gram) 00:00: vagina [place] vaginal 00 weekly. Medical cream Branch estradiol 2017-07 Yes [id number] 2g Insert 2 g [facility] 0.01 % (0.1 1-15 into ity of mg/gram) 00:00: vagina [place] vaginal 00 weekly. Medical cream Branch estradiol 2017-07 Yes [id number] 2g Insert 2 g [facility] 0.01 % (0.1 1-15 into ity of mg/gram) 00:00: vagina [place] vaginal 00 weekly. Medical cream Branch estradiol 2017-07 Yes [id number] 2g Insert 2 g [facility] 0.01 % (0.1 1-15 into ity of mg/gram) 00:00: vagina [place] vaginal weekly. Medical cream Branch estradiol 2017-07 Yes [id number] 2g Insert 2 g [facility] 0.01 % (0.1 1-15 into ity of mg/gram) 00:00: vagina [place] vaginal 00 weekly. Medical cream Branch estradiol 2017-07 Yes [id number] 2g Insert 2 g [facility] 0.01 % (0.1 1-15 into ity of mg/gram) 00:00: vagina [place] vaginal 00 weekly. [facility] cream Branch estradiol 2017-07 Yes [id number] 2g Insert 2 g Univers 0.01 % (0.1 1-15 into ity of mg/gram) 00:00: vagina [place] vaginal 00 weekly. [facility] cream [place] estradiol 2017-07 Yes [id number] 2g Insert 2 g Univers 0.01 % (0.1 1-15 into ity of mg/gram) 00:00: vagina [place] vaginal 00 weekly. [facility] cream Branch estradiol 2017-07 Yes [id number] 2g Insert 2 g Univers 0.01 % (0.1 1-15 into ity of mg/gram) 00:00: vagina [place] vaginal 00 weekly. [facility] cream Branch estradiol 2017-07 Yes [id number] 2g Insert 2 g Univers 0.01 % (0.1 1-15 into ity of mg/gram) 00:00: vagina [place] vaginal weekly. [facility] cream Branch estradiol 2017-07 Yes [id number] 2g Insert 2 g Univers 0.01 % (0.1 1-15 into ity of mg/gram) 00:00: vagina [place] vaginal 00 weekly. Medical cream Branch estradiol 2017-07 Yes [id number] 2g Insert 2 g Univers 0.01 % (0.1 1-15 into ity of mg/gram) 00:00: vagina [place] vaginal 00 weekly. Medical cream Branch estradiol 2017-07 Yes [id number] 2g Insert 2 g Univers 0.01 % (0.1 1-15 into ity of mg/gram) 00:00: vagina [place] vaginal 00 weekly. Medical cream [place] estradiol 2017-07 Yes [id number] 2g Insert 2 g Univers 0.01 % (0.1 1-15 into ity of mg/gram) 00:00: vagina [place] vaginal 00 weekly. Medical cream Branch estradiol 2017-07 Yes [id number] 2g Insert 2 g Univers 0.01 % (0.1 1-15 into ity of mg/gram) 00:00: vagina [place] vaginal 00 weekly. Medical cream Branch estradiol 2017-07 Yes [id number] 2g Insert 2 g Univers 0.01 % (0.1 1-15 into ity of mg/gram) 00:00: vagina [place] vaginal 00 weekly. Medical cream Branch estradiol 2017-07 Yes [id number] 2g Insert 2 g Univers 0.01 % (0.1 1-15 into ity of mg/gram) 00:00: vagina [place] vaginal 00 weekly. [facility] cream [place] estradiol 2017-07 Yes [id number] 2g Insert 2 g Univers 0.01 % (0.1 1-15 into ity of mg/gram) 00:00: vagina [place] vaginal 00 weekly. [facility] cream [place] estradiol 2017-07 Yes [id number] 2g Insert 2 g Univers 0.01 % (0.1 1-15 into ity of mg/gram) 00:00: vagina [place] vaginal 00 weekly. [facility] cream [place] estradiol 2017-07 Yes [id number] 2g Insert 2 g Univers 0.01 % (0.1 1-15 into ity of mg/gram) 00:00: vagina [place] vaginal 00 weekly. [facility] cream [place] estradiol 2017-07 Yes [id number] 2g Insert 2 g Univers 0.01 % (0.1 1-15 into ity of mg/gram) 00:00: vagina [place] vaginal 00 weekly. Medical cream Branch estradiol 2017-07 Yes [id number] 2g Insert 2 g Univers 0.01 % (0.1 1-15 into ity of mg/gram) 00:00: vagina [place] vaginal 00 weekly. Medical cream Branch estradiol 2017-07 Yes [id number] 2g Insert 2 g Univers 0.01 % (0.1 1-15 into ity of mg/gram) 00:00: vagina [place] vaginal 00 weekly. [facility] cream Branch estradiol 2017-07 Yes [id number] 2g Insert 2 g Univers 0.01 % (0.1 1-15 into ity of mg/gram) 00:00: vagina [place] vaginal 00 weekly. [facility] estradiol 2017-07 Yes [id number] 2g Insert 2 g Univers 0.01 % (0.1 1-15 into ity of mg/gram) 00:00: vagina [place] vaginal 00 weekly. [facility] estradiol 2017-07 Yes [id number] 2g Insert 2 g Univers 0.01 % (0.1 1-15 into ity of mg/gram) 00:00: vagina [place] vaginal 00 weekly. [facility] estradiol 2017-07 Yes [id number] 2g Insert 2 g Univers 0.01 % (0.1 1-15 into ity of mg/gram) 00:00: vagina [place] vaginal 00 weekly. [facility] cream [place] estradiol 2017-07 Yes [id number] 2g Insert 2 g Univers 0.01 % (0.1 1-15 into ity of mg/gram) 00:00: vagina [place] vaginal 00 weekly. [facility] estradiol 2017-07 Yes [id number] 2g Insert 2 g Univers 0.01 % (0.1 1-15 into ity of mg/gram) 00:00: vagina [place] vaginal 00 weekly. [facility] estradiol 2017-07 Yes [id number] 2g Insert 2 g Univers 0.01 % (0.1 1-15 into ity of mg/gram) 00:00: vagina [place] vaginal 00 weekly. [facility] cream [place] estradiol 2017-07 Yes [id number] 2g Insert 2 g Univers 0.01 % (0.1 1-15 into ity of mg/gram) 00:00: vagina [place] vaginal 00 weekly. [facility] estradiol 2017-07 Yes [id number] 2g Insert 2 g Univers 0.01 % (0.1 1-15 into ity of mg/gram) 00:00: vagina [place] vaginal 00 weekly. [facility] metFORMIN 2016-07 Yes See Memoria 500 mg oral 2-06 Instructio l tablet, 19:47: ns, TAKE Juni n extended 32 ONE TABLET release BY MOUTH ONCE DAILY FOR DIABETES, # 90 tab, 0 Refill(s), Pharmacy: [id number], Pt needs to get lab work done from prior visit before next refill atorvastati 2016-07 Yes See Memori a n 20 mg 2-06 Instructio l oral tablet 19:47: ns, TAKE He rmann 16 ONE TABLET BY MOUTH ONCE DAILY AT BEDTIME, # 90 tab, 1 Refill(s), Pharmacy: [id number] Sodium No Maria Eugenia 1,000 mL, Tej ángela Chloride 01-27 Apri[place] Rate: l 0.9% 22:56: Emerita 1,000 [place] (Bolus) IV 00 ml/hr, 1,000 mL Infuse over: 1 hr, Route: IV, Dosing Weight 98.182 kg, Total Volume: 1,000, Priority: STAT, Start date: 01/27/13 17:56:00, Duration: 1 doses or times, Stop date: 01/27/13 18:55:00, Bolus DoseBolus Dose morphine No Maria Eugenia 4 mg, 2 Tej ángela Sulfate 01-27 Aprielle mL, Route: l 22:55: [place]man IVP, Drug [place] 00 form: INJ, ONCE, Dosing Weight 98.182, kg, Priority: STAT, Start date: 01/27/13 17:55:00, Stop date: 01/27/13 17:55:00 ondansetron No Maria Eugenia 4 mg, 2 M emoria 01-27 Aprielle mL, Route: l 22:55: Emerita IVP, Drug [place] 00 form: INJ, ONCE, Dosing Weight 98.182, kg, Priority: STAT, Start date: 01/27/13 17:55:00, Stop date: 01/27/13 17:55:00 Immunizations Ordered Filled Immunization Date Status Comments [facility] e Immunization Name Name SARS-COV-2 COVID-19 2020-08-20 Completed Unive rsity of MODERNA VACCINE 00:00:00 [facility] [place] [facility] SARS-COV-2 COVID-19 2020-08-20 Completed Unive rsity of MODERNA VACCINE 00:00:00 [facility] [place] [facility] SARS-COV-2 COVID-19 2020-08-20 Completed Unive rsity of MODERNA VACCINE 00:00:00 [facility] [place] [facility] SARS-COV-2 COVID-19 2020-07-22 Completed Unive rsity of MODERNA VACCINE 00:00:00 [facility] [place] [facility] SARS-COV-2 COVID-19 2020-07-22 Completed Unive rsity of MODERNA VACCINE 00:00:00 [facility] [place] [facility] SARS-COV-2 COVID-19 2020-07-22 Completed Unive rsity of MODERNA VACCINE 00:00:00 [facility] [place] [facility] SARS-COV-2 COVID-19 2020-07-22 Completed Unive rsity of MODERNA VACCINE 00:00:00 [facility] [place] [facility] SARS-COV-2 COVID-19 2020-07-22 Completed Unive rsity of MODERNA VACCINE 00:00:00 [facility] [place] [facility] SARS-COV-2 COVID-19 2020-07-22 Completed Unive rsity of MODERNA VACCINE 00:00:00 [facility] [place] [facility] SARS-COV-2 COVID-19 2020-07-22 Completed Unive rsity of MODERNA VACCINE 00:00:00 [facility] [place] [facility] pneumococcal 2015-11-21 Completed [facility] collins 13-valent vaccine 16:55:00 diphtheria/pertussi 2013-04-24 Completed Ricardo crane acel/tetanus 05:00:00 adult<sup>1</sup> zoster vaccine 2013-04-24 Completed [facility] ermann live<sup>2</sup> 05:00:00 zoster vaccine 2013-04-24 Completed [facility] ermann live<sup>1</sup> 05:00:00 diphtheria/pertussi 2013-04-24 Completed Ricardo crane, acel/tetanus 05:00:00 adult<sup>2</sup> Hx influenza 2013-03-30 Completed [facility] collins vaccine-unspecified 15:21:41 <sup>3</sup> Vital Signs Vital Name Observation Time Observation Value Comments Source Systolic blood 2021-07-01 23:10:00 155 mm[Hg] Univer sity of pressure [facility] Diastolic blood 2021-07-01 23:10:00 63 mm[Hg] Unive rsity of pressure [facility] Heart rate 2021-07-01 23:10:00 70 /min [facility] Body temperature 2021-07-01 23:10:[address] [facility] Respiratory rate 2021-07-01 23:10:00 20 /min [facility] saturation in 2021-07-01 23:10:00 94 /min [facility] Arterial blood by [facility] Pulse oximetry Branch Body height 2021-07-01 22:20:00 172.7 cm [facility] [place] [facility] Body weight 2021-07-01 22:20:00 108.863 kg [facility] [place] [facility] BMI 2021-07-01 22:20:00 36.49 kg/m2 [facility] [place] [facility] Systolic blood 2021-06-29 17:32:00 142 mm[Hg] Univer sity of pressure [place] [facility] Diastolic blood 2021-06-29 17:32:00 49 mm[Hg] Unive rsity of pressure [place] [facility] Heart rate 2021-06-29 17:32:00 59 /min [facility]i ty [facility] Branch Body temperature 2021-06-29 17:32:00 37.28 Nicole Univ ersity of [facility] Branch Respiratory rate 2021-06-29 17:32:00 16 /min Univ ersity of [facility] Branch Body height 2021-06-29 17:32:00 172.7 cm [facility] [place] [facility] Body weight 2021-06-29 17:32:00 108.863 kg [facility] [place] [facility] BMI 2021-06-29 17:32:00 36.49 kg/m2 Universi ty [facility] Branch Oxygen saturation in 2021-06-29 17:32:00 98 /min University of Arterial blood by [facility] Pulse oximetry Branch Systolic blood 2020-07-31 20:58:00 135 mm[Hg] Univer sity of pressure [place] [facility] Diastolic blood 2020-07-31 20:58:00 61 mm[Hg] Unive rsity of pressure [place] [facility] Heart rate 2020-07-31 20:58:00 59 /min [facility] [place] [facility] Respiratory rate 2020-07-31 20:58:00 18 /min Univ ersity of [facility] Branch Body height 2020-07-31 20:58:00 172.7 cm [facility] [place] [facility] Body weight 2020-07-31 20:58:00 104.327 kg [facility] [place] [facility] BMI 2020-07-31 20:58:00 34.97 kg/m2 [facility] Branch Systolic blood 2020-07-31 20:58:00 135 mm[Hg] Univer sity of pressure [place] [facility] Diastolic blood 2020-07-31 20:58:00 61 mm[Hg] Unive rsity of pressure [facility] Heart rate 2020-07-31 20:58:00 59 /min [facility] [place] [facility] Respiratory rate 2020-07-31 20:58:00 18 /min Univ [facility] [place] [facility] Body height 2020-07-31 20:58:00 172.7 cm [facility] [place] [facility] Body weight 2020-07-31 20:58:00 104.327 kg [facility] [place] [facility] BMI 2020-07-31 20:58:00 34.97 kg/m2 [facility] [place] [facility] Systolic blood 2020-07-17 19:30:00 135 mm[Hg] Univer sity of [facility] [place] [facility] Diastolic blood 2020-07-17 19:30:00 77 mm[Hg] Unive rsity of [facility] [place] [facility] Heart rate 2020-07-17 19:30:00 60 /min [facility] [place] [facility] Respiratory rate 2020-07-17 19:30:00 18 /min Univ [facility] [place] [facility] Body height 2020-07-17 19:30:00 172.7 cm [facility] [place] [facility] Body weight 2020-07-17 19:30:00 104.327 kg [facility] [place] [facility] BMI 2020-07-17 19:30:00 34.97 kg/m2 [facility] [place] [facility] Systolic blood 2020-07-03 20:45:00 115 mm[Hg] Univer [facility]ity of [facility] [place] [facility] Diastolic blood 2020-07-03 20:45:00 55 mm[Hg] Unive rsity of [facility] [place] [facility] Heart rate 2020-07-03 20:45:00 60 /min [facility] [place] [facility] Body height 2020-06-12 20:59:00 172.7 cm [facility] [place] [facility] Body weight 2020-06-12 20:59:00 104.327 kg [facility] [place] [facility] BMI 2020-06-12 20:59:00 34.97 kg/m2 [facility] [place] [facility] Body height 2020-05-20 19:57:00 172.7 cm [facility] [place] [facility] Body weight 2020-05-20 19:57:00 104.327 kg [facility] [place] [facility] BMI 2020-05-20 19:57:00 34.97 kg/m2 Universi ty [facility] Systolic blood 2020-04-15 19:37:00 141 mm[Hg] Univer sity of pressure [facility] Diastolic blood 2020-04-15 19:37:00 56 mm[Hg] Unive rsity of pressure [facility] Heart rate 2020-04-15 19:37:00 62 /min Universi ty [facility] Body height 2020-04-15 19:37:[address] [facility] Body weight 2020-04-15 19:37:[address] [facility] BMI 2020-04-15 19:37:00 34.97 kg/m2 [facility] Body height 2020-11-06 16:49:00 172.7 cm [facility] Body weight 2020-11-06 16:49:00 106.595 kg [facility] BMI 2020-11-06 16:49:00 35.73 kg/m2 [facility] Temperature Oral (F) 2019-08-11 13:32:00 98.3 F [facility] Heart Rate 2019-08-11 13:32:00 [facility] [place] Respitory Rate 2019-08-11 13:32:00 [facility] [place] Systolic (mm Hg) 2019-08-11 13:32:00 Tej rial [place] Diastolic (mm Hg) 2019-08-11 13:32:00 Mem [facility] [place] Temperature Oral (F) 2019-08-11 10:00:00 98.1 F [facility] [place] Heart Rate 2019-08-11 10:00:00 [facility] [place] Respitory Rate 2019-08-11 10:00:00 [facility] [place] Systolic (mm Hg) 2019-08-11 10:00:00 Tej rial [place] Diastolic (mm Hg) 2019-08-11 10:00:00 Mem orial [place] Temperature Oral (F) 2019-08-11 05:39:00 98.1 F [facility] [place] Heart Rate 2019-08-11 05:39:00 [facility] [place] Respitory Rate 2019-08-11 05:39:00 [facility] [place] Systolic (mm Hg) 2019-08-11 05:39:00 Tej rial [place] Diastolic (mm Hg) 2019-08-11 05:39:00 Mem [facility] [place] Height 2019-08-10 23:14:00 172.72 cm [facility] [place] Weight 2019-08-10 23:14:00 [facility] [place] BMI Calculated 2019-08-10 23:14:00 [facility] [place] Height 2019-08-10 13:37:00 172.72 cm [facility] [place] Weight 2019-08-10 13:37:00 [facility] [place] BMI Calculated 2019-08-10 13:37:00 [facility] [place] Heart Rate 2018-02-25 14:37:00 [facility] [place] Temperature Oral (F) 2018-02-25 14:37:00 98.7 F [facility] [place] Height 2018-02-25 14:37:00 172.72 cm [facility] Weight 2018-02-25 14:37:00 [facility] [place] BMI Calculated 2018-02-25 14:37:00 [facility] [place] Systolic (mm Hg) 2018-02-25 14:37:00 Tej rial [place] Diastolic (mm Hg) 2018-02-25 14:37:00 Mem orial [place] Systolic (mm Hg) 2017-10-28 20:21:00 Tej rial [place] Diastolic (mm Hg) 2017-10-28 20:21:00 Mem orial [place] Weight 2017-10-28 20:21:00 [facility] [place] BMI Calculated 2017-10-28 20:21:00 [facility] [place] Height 2017-10-28 20:21:00 172.72 cm [facility] [place] Heart Rate 2017-10-28 20:21:00 [facility] [place] Temperature Oral (F) 2017-10-28 20:21:00 98.2 F [facility] [place] Height 2017-06-16 19:18:00 172.72 cm [facility] [place] BMI Calculated 2017-06-16 19:18:00 [facility] [place] Weight 2017-06-16 19:18:00 [facility] [place] Heart Rate 2017-06-16 19:18:00 [facility] [place] Temperature Oral (F) 2017-06-16 19:18:00 97.8 F [facility] [place] Systolic (mm Hg) 2017-06-16 19:18:00 Tej rial [place] Diastolic (mm Hg) 2017-06-16 19:18:00 Mem [facility] [place] Weight 2013-01-27 20:58:00 [facility] Height 2013-01-27 20:58:00 172.72 cm [facility] Procedures Procedure Date / Time Performing Clinician Source Performed [id number] CONSENT 2021-07-15 06:01:00 Doctor Theresa, [facility] [place] [facility] XR CHEST 2 VW 2021-06-29 18:44:49 Tano Fontaine [facility] RAPID STREP SCREEN FOR 2021-06-29 17:43:00 Tano Fontaine [facility] GROUP A [facility] RAPID INFLUENZA A/B 2021-06-29 17:43:00 [facility] COVID-19 (ID NOW RAPID 2021-06-29 17:43:00 Tano Fontaine [facility] TESTING) [facility] CONSENT/REFUSAL FOR 2021-06-29 17:26:19 Doctor Theresa, [facility] DIAGNOSIS AND TREATMENT [place] [facility] NOTICE OF PRIVACY 2021-06-29 17:25:46 Doctor Theresa, [facility] PRACTICES [place] [facility] XR LUMBAR SPINE COMPLETE W 2020-11-11 18:11:33 Umair Rodriguez [facility] BENDING XR SPINE SCOLIOSIS 2-3 2020-11-11 18:10:[facility] EXTERNAL STUDY 2020-10-02 18:28:00 Umair Rodriguez [facility] REFERRAL- REQUEST/RESPONSE 2020-07-25 06:01:00 Doctor Cardenas [facility] [place] [facility] NON [facility] 2020-06-19 06:01:00 Doctor Theresa, [facility] DOCUMENTATION [place] [facility] MEDICAL RELEASE/CLEARANCE 2020-06-13 06:01:00 Doctor Theresa [facility] FORMS [place] [facility] XR CHEST 2 VW 2020-06-12 22:36:08 Richy Gallegos [facility] Medical Branch CT SHOULDER RIGHT W 2020-05-30 16:21:43 Richy Gallegos [facility] CONTRAST Medical Branch FL ARTHROGRAM SHOULDER 2020-05-30 16:07:19 Richy Glalegos [facility] RIGHT Medical Branch NOTICE OF PRIVACY 2020-05-30 14:48:47 Doctor Unassigned, [facility] PRACTICES [place] [facility] CONSENT/REFUSAL FOR 2020-05-30 14:47:23 Doctor Unassigned, [facility] DIAGNOSIS AND TREATMENT [place] [facility] ASSIGNMENT OF BENEFITS 2020-05-30 14:47:06 Doctor Unassigned, [facility] [place] [facility] REFERRAL- REQUEST/RESPONSE 2020-05-20 06:01:00 Doctor Unassigned , [facility] [place] [facility] REFERRAL- REQUEST/RESPONSE 2020-04-29 05:01:00 Doctor Unassigned , [facility] [place] [facility] ASSIGNMENT OF BENEFITS 2020-04-15 19:20:54 Doctor Unassigned, [facility] [place] [facility] Implantation of cardiac 2017-11-28 05:00:00 Tej Limon pacemaker Diabetic retinopathy 2016-04-11 00:00:00 Rufino Limon screening<sup>1</sup> Hysterectomy [facility] [place] Appendectomy [facility] Chole[facility] Procedure on ankle [facility] Procedure on hand [facility] Plan of Care Planned Activity Planned Date Details Comments Source Future Scheduled 2021-08-12 65+ [facility]UMOCOCCAL [facility] Test 21:22:15 VACCINE (1 of 2 - PPSV23) [code = 65+ PNEUMOCOCCAL VACCINE (1 of 2 - PPSV23)] Future Scheduled 2021-08-12 Hepatitis C screening [facility] Test 21:22:15 (procedure) [code = 091512673] Future Scheduled 2021-08-12 BREAST CANCER [facility] Test 21:22:15 SCREENING [code = BREAST CANCER SCREENING] Future Scheduled 2021-08-12 COLONOSCOPY SCREENING [facility] [place] [facility] Test 21:22:15 [code = COLONOSCOPY SCREENING] Future Scheduled 2021-08-12 SHINGLES VACCINES (#[facility] Test 21:22:15 [code = SHINGLES VACCINES (#1)] Future Scheduled 2021-08-12 INFLUENZA VACCINE [facility] Test 21:22:15 [code = INFLUENZA VACCINE] Future Scheduled 2021-08-12 COVID-19 VACCINE (3 - Me [facility] Test 21:22:15 Booster for Moderna series) [code = COVID-19 VACCINE (3 - Booster for Moderna series)] Encounters Start End Encounter Admission Attending Care Care Encounter Source Date/Time Date/Time Type Type Clinicians Facility Department ID 2021-08-06 [facility] 13:[facility] Rashaad [id number] [facility] 2021-08-06 Outpatient Morris[facility] 13:30:34 Rashaad [id number] [facility] 2021-08-06 Outpatient Morris, [facility] [id number] 13:27:07 Rashaad [id number] [facility] 2021-08-06 [facility] 12:36:59 Rashaad [id number] [facility] 2021-08-06 Out[facility] 12:36:19 Rashaad [id number] [facility] 2021-08-06 Outpatient Morris, [facility] 12:34:28 Rashaad [id number] [facility] 2021-08-06 Out[facility], [facility] 12:23:02 Rashaad [id number] [facility] 2021-08-06 Outpatient Morris, [facility] [id number] 12:15:51 Rashaad [id number] [facility] 2021-08-06 Outpatient Jackson, Na [facility] [id number] 12:11:13 [id number] [facility] 2021-10-17 2021-10-17 Outpatient R RADIOLOGY [facility] [id number] Univers 12:40:00 12:40:[id number] [facility] 2021-07-23 2021-07-23 Outpatient Tumelson_A DMG [facility]G [id number] [facility] 12:01:00 12:01:00 0112 Medica l Group 2021-07-21 2021-07-21 Outpatient Tumelson_A DMG DMG [id number] [facility] 04:00:00 04:00:00 0110 Medica l Group 2021-07-15 2021-07-15 Orders Doctor ALISSA [id number] Univers 00:00:00 00:00:00 Only Unassigned, MARIA [id number] ity of [facility] [id number] Iván as [id number] [facility] 009 Branch 2021-07-09 2021-07-09 Outpatient Tumelson_A DMG DMG [id number] [facility] 12:14:00 12:14:00 1229 Medica l Group 2021-07-01 2021-07-01 Nurse Therapy, Adc Covid Infusion [facility] [id number] Univers 16:00:00 17:00:00 Visit Lynn Morris [id number] ity [id number] [id number] [facility] 053 Branch 2021-07-01 2021-07-01 Outpatient Dhruv [facility]IS [facility] [id number] Univers 16:00:00 16:00:[address] [facility] 2021-06-29 2021-06-29 Emergency X AUFDERHEIDE [facility] ERT [id number] Univers 11:35:00 13:23:00 , TANO sosa [facility] 2021-06-29 2021-06-29 [facility] [id number] Univers 11:35:00 13:23:00 , Tano OWEN [id number] i ty of [place] [id number] [place] [id number] [facility] 084 Branch 2021-03-28 2021-03-28 Outpatient STLMLC [facility] [id number]:00 Sanjuanita cage Outpat[facility] ent Clinics 2021-03-20 2021-03-20 [address] [facility] [id number] 2021-02-03 2021-02-03 Out[facility] [id number] [facility] 2021-01-30 2021[facility]01-[address] [facility] [id number] 2021-01-24 2021-01-[address] [facility] [id number] 2021-01-24 2021-01-[address] [facility] [id number] [facility]00 [facility] 2020-12-11 2020-12-11 Outpatient GAYLORD_S [facility] [id number] [facility] 03:22:00 03:22:00 0602 Medica l Group 2020-11-11 2020-11-11 [facility], [id number] Methodi 14:23:06 23:59:00 Encounter Umair Mistry [id number] [id number] Hospit a .[id number] l .8 2020-11-11 2020-11-11 [facility], [id number] Methodi 12:22:02 14:22:00 Encounter Umair Mistry [id number] [id number] Hospit a .[id number] l .8 2020-11-11 2020-11-11 [place] [facility] 1.2.840.1 [id number] Methodi 13:16:16 14:10:34 Visit Umair Mistry 97473.1.[address] 3.430.2.7 Hospit a .3.346915 l .8 2020-11-11 2020-11-11 [facility], 1.2.840.1 [id number] Methodi 12:21:46 12:21:46 Encounter Umair Kumar. 29130.1.[address] 3.430.2.7 Hospit a .3.701292 l .8 2020-11-11 2020-11-11 Travel 1.2.840.1 1.2.379.097 [id number] Methodi 00:00:00 00:00:[address] 3.430.2.7 0.2.7.3.698 Ho spita .3.711552 084.8 l .8 2020-11-06 2020-11-06 Abstract Nelli Spears 1.2.840.1 [id number] Methodi 00:00:00 00:00:[address] 3.430.2.7 Hospit a .3.065020 l .8 2020-11-06 2020-11-06 Abstract Nelli Spears 1.2.840.1 [id number] Methodi 00:00:00 00:00:[address] 3.430.2.7 Hospit a .3.377368 l .8 2020-10-18 2020-10-18 [facility] 1.2.840.1 [id number] Methodi 00:00:00 00:00:00 Only Umari Kumar. 07170.1.[address] 3.430.2.7 Hospit a .3.309572 l .8 2020-10-18 2020-10-18 Travel 1.2.840.1 1.2.021.721 [id number] Methodi 00:00:00 00:00:[address] 3.430.2.7 0.2.7.3.698 Ho spita .3.547509 084.8 l .8 2020-10-08 2020-10-08 Outpatient [facility]LMLC [facility] [id number] [facility] 2020-10-02 2020-10-02 Outpatient [facility]LMLC [facility]LMLC [id number] [facility] 2020-09-17 2020-09-17 Outpatient STLMLC STLMLC [id number] [facility] 2020-09-16 2020-09-16 Outpatient STLMLC STLMLC [id number] [facility] 2020-09-16 2020-09-16 Outpatient STLMLC STLC [id number] [facility] 2020-09-10 2020-09-10 Outpatient [facility] [id number] -[id number] Univers 14:20:00 14:20:00 [id number] [facility] 2020-08-30 2020-08-30 Outpatient Dhruv TAVARES [facility] [id number] -[id number] Univers 10:30:00 10:30:00 ARIAN [id number] [facility] 2020-08-30 2020-08-30 [facility] [id number] Univers 10:30:00 10:30:00 ARIAN [facility] 2020-08-23 2020-08-23 Outpatient STLMLC STLC [id number] [facility] 2020-08-23 2020-08-23 Outpatient [facility]LMLC STLC [id number] [facility] 2020-08-20 2020-08-20 Outpatient Dhruv KATHLEEN [facility] [id number] Univers 14:20:00 13:53:09 SAVANA [facility] 2020-08-19 2020-08-19 [facility] [id number] 3N Univers 14:20:00 14:20:[id number] [facility] 2020-08-19 2020-08-19 Outpatient Dhruv KATHLEEN, [facility] [id number] Univers 14:20:00 14:20:[address] [facility] 2020-08-14 2020-08-14 [facility] [id number] -20 Univers 13:45:00 13:45:[id number] [facility] 2020-07-31 2020-07-31 Outpatient [facility] [id number] Univers 15:00:00 15:32:38 ARIAN [facility] 2020-07-31 2020-07-31 [facility] 1.2.840.114 [id number] Univers 14:54:06 15:09:06 Visit [facility] 350.1.13.10 it y of Surgical 4.2.7.2.686 Iván as Specialti [id number] Fl dical [address] 2020-07-31 2020-07-31 Office [facility] 1.2.840.114 [id number] 22 14:54:06 15:09:06 Visit [facility] 350.1.13.10 Surgical 4.2.7.2.686 Specialti [id number] [address] 2020-07-31 2020-07-31 [facility] [id number] -20 Univers 15:00:00 15:00:[id number] y [facility] 2020-07-30 2020-07-30 Outpatient STLMLC STLMLC [id number] [facility] St 00:00:00 00:00:00 [facility] 2020-07-25 2020-07-25 Orders Doctor ALISSA 1.2.840.114 [id number] Univers 00:00:00 00:00:00 Only Unassigned, MARIA 350.1.13.10 [place]y [place] [facility] 4.2.7.2.686 Iván as [phone] [address] 2020-07-25 2020-07-25 Orders Doctor ALISSA 1.2.840.114 [id number] 00:00:00 00:00:00 Only Unassigned, MARIA 350.1.13.10 [place] [facility] 4.2.7.2.686 [id number] [id number] 2020-07-24 2020-07-24 Telephone [facility] 1.2.404.922 [id number] Univers 00:00:00 00:00:00 [facility] 350.1.13.10 it y of Surgical 4.2.7.2.686 Iván as Specialti [id number] [facility] es [address] [place] [address] 2020-07-22 2020-07-22 Outpatient [facility] [id number] 3N-20 Univers 15:40:00 15:40:00 SAVANA [id number] [facility] 2020-07-22 2020-07-22 Outpatient [facility] [id number] Univers 15:40:00 15:36:38 SAVANA [facility] 2020-07-19 2020-07-19 Outpatient STLMLC [facility]LMLC [id number] [facility] 2020-07-17 2020-07-17 [facility] 1.2.840.114 [id number] Univers 13:20:55 13:35:55 Visit [facility] 350.1.13.10 it y of Surgical 4.2.7.2.686 Iván as Specialti [id number] Fl dical es 198 [facility] 2020-07-17 2020-07-17 Out[facility] [id number] Univers 13:30:00 13:30:00 [facility] 2020-07-03 2020-07-03 Out[facility] [id number] Univers 14:45:00 15:19:09 [facility] 2020-07-03 2020-07-03 Office [facility] 1.2.840.114 [id number] Univers 14:35:14 14:50:14 Visit [facility] 350.1.13.10 it y of Surgical 4.2.7.2.686 Iván as Specialti [id number] Fl dical es 198 [facility] 2020-07-03 2020-07-03 Out[facility] [id number] -[id number] Univers 14:45:00 14:45:00 ARIAN [id number] ity of [facility] 2020-06-24 2020-06-24 Telephone [facility] 1.2.840.114 [id number] Univers 00:00:00 00:00:00 [facility]y [facility] 350.1.13.10 it y of Surgical 4.2.7.2.686 Iván as Specialti [phone] Fl dical es 198 [facility] 2020-06-19 2020-06-19 [facility] El [facility] 1.2.840.114 [id number] Univers 10:48:00 23:59:00 Encounter Richy L [place] 350.1.13.10 [place] [id number] [facility] [address] [place] 2020-06-19 2020-06-19 [facility] N[facility] [id number] Univers 00:00:00 00:00:00 RICHY ity of [facility] 2020-06-19 2020-06-19 Telephone [facility] 1.2.840.114 [id number] Univers 00:00:00 00:00:00 Richy Levy 350.1.13.10 it y of Surgical 4.2.7.2.686 Iván as Specialti [phone] Fl dical es 198 [facility] 2020-06-19 2020-06-19 Orders Doctor MAXWELL 1.2.840.114 [id number] Univers 00:00:00 00:00:00 Only Unassigned, MARIA 350.1.13.10 [place] [facility] 4.2.7.2.686 Iván as [phone] [facility] [address] [place] 2020-06-18 2020-06-18 Outpatient STLMLC [facility]LMLC [id number] [facility] 2020-06-13 2020-06-13 Orders Doctor MAXWELL 1.2.840.114 [id number] Univers 00:00:00 00:00:00 Only Unassigned, MARIA 350.1.13.10 ity [place] [facility] 4.2.7.2.686 Iván as [phone] [facility] [address] [place] 2020-06-12 2020-06-12 [facility] 1.2.840.114 [id number] Univers 15:53:50 23:59:00 Encounter Richy Owen 350.1.13.10 [place] [id number] [facility] [address] [place] [address] 2020-06-12 2020-06-12 Cargo Worker Safia, [facility] Main [facility] 1.2.8 40.114 [id number] Univers 15:54:03 16:09:03 Visit Richy Gallegos 350.1.13.10 [place] [phone] Fl dical nal 353 [facility] 2020-06-12 2020-06-12 Office [facility] 1.2.557.645 [id number] Univers 14:54:18 15:24:07 Visit Richy Cage [facility] 350.1.13.10 it y of Surgical 4.2.7.2.686 Iván as Specialti [id number] Fl dical es 198 [facility] 2020-06-12 2020-06-12 [facility] [id number] [id number]-20 Univers 15:00:00 15:00:[address] [facility] 2020-06-12 2020-06-12 Outpatient [facility] [id number] Univers 15:00:00 15:00:[address] [facility] 2020-05-30 2020-05-30 [facility] 1.2.840.114 [id number] Univers 08:45:26 23:59:00 Encounter Richy Owen 350.1.13.10 [place] [id number] [facility] [address] [place] [address] 2020-05-30 2020-05-30 Outpatient [facility] [id number] 3N-20 Univers 10:30:00 10:30:00 RICHY [id number] ity of [facility] 2020-05-30 2020-05-30 [facility] 1.2.840.114 [id number] Univers 08:44:45 08:44:45 Encounter Richy Owen 350.1.13.10 [place] 4.2.7.2.686 [facility] [id number] [facility] [address] [place] 2020-05-30 2020-05-30 Outpatient [facility] [id number] Univers 00:00:00 00:00:[address] [facility] 2020-05-22 2020-05-22 Telephone [facility] 1.2.840.114 [id number] Univers 00:00:00 00:00:00 Richy Cage [facility] 350.1.13.10 it y of Surgical 4.2.7.2.686 Iván as Specialti [id number] Fl dicla es 198 [facility] 2020-05-20 2020-05-20 Office [facility] 1.2.904.738 [id number] Univers 13:46:53 14:13:36 Visit Richy Levy 350.1.13.10 it y of Surgical 4.2.7.2.686 Iván as Specialti [id number] Fl dical es 198 [facility] 2020-05-20 2020-05-20 Outpatient [facility] [id number] [id number]-20 Univers 14:00:00 14:00:[address] [facility] 2020-05-20 2020-05-20 Outpatient [facility] [id number] Univers 14:00:00 14:00:[address] [facility] 2020-05-20 2020-05-20 Orders Doctor MAXWELL 1.2.840.114 [id number] Univers 00:00:00 00:00:00 Only Unassigned, MARIA 350.1.13.10 [place] [facility] 4.2.7.2.686 Iván as [phone] [facility] [address] [place] 2020-05-06 2020-05-06 Outpatient [facility] [id number] [id number]-20 Univers 13:45:00 13:45:[id number] [facility] 2020-05-06 2020-05-06 Outpatient [facility] [id number] Univers 13:45:00 13:45:00 RICHY [facility] 2020-04-29 2020-04-29 Orders Doctor ALISSA 1.2.840.114 [id number] Univers 00:00:00 00:00:00 Only Unassigned, MARIA 350.1.13.10 ity [place] [facility] 4.2.7.2.686 Iván as [id number] [address] 2020-04-15 2020-04-15 Office [facility] 1.2.997.420 [id number] Univers 14:24:24 14:52:17 Visit Richy [facility] 350.1.13.10 it y of Surgical 4.2.7.2.686 Iván as Specialti [id number] Fl dical 198 [facility] 2020-04-15 2020-04-15 Outpatient [facility] [id number] 3N-20 Univers 14:30:00 14:30:[address] [facility] 2020-04-15 2020-04-15 Outpatient R [facility] [id number] Univers 14:30:00 14:30:00 [facility] 2020-04-15 2020-04-15 Orders Doctor ALISSA 1.2.840.114 [id number] Univers 00:00:00 00:00:00 Only Unassigned, MARIA 350.1.13.10 ity [place] [facility] 4.2.7.2.686 Iván as [phone] [address] 2019-08-10 2019-08-11 Observatio [facility] [id number] Memoria 18:02:00 16:04:00 n dhruv Limon 03 l [facility] 2019-08-10 2019-08-10 Outpatient MHSE CAR [id number] MH 12:02:00 12:02:[address] [facility] 2018-06-13 2018-06-13 Outpatient Dhruv LAWLER [facility] [id number] -[id number] Univers 00:00:00 00:00:00 WOO [id number] ity o f [facility] 2018-02-25 2018-02-26 [place] [id number] Memoria 15:00:00 04:59:59 r Primary 09 l [facility] 2017-10-28 2017-10-29 Outpatient nullFlavo MHMG [id number] Memoria 20:30:00 04:59:59 r Primary 08 l [facility] 2017-06-22 2017-06-22 [place] [id number] Memoria 15:15:00 15:15:00 Pre-Reg r Primary 07 l [facility] 2017-06-16 2017-06-17 [place] [id number] Memoria 19:15:00 05:59:59 r Primary 06 l [facility] 2017-06-01 2017-06-01 [place] [id number] Memoria 16:30:00 16:30:00 Pre-Reg r Primary 05 l [facility] 2017-03-03 2017-03-03 Outpatient MHIE MHIE [id number] Memoria 15:45:00 15:45:00 04 fauzia [place] 2017-02-19 2017-02-19 Outpatient MHIE MHIE [id number] Memoria 10:15:00 10:15:00 03 fauzia [place] 2015-11-21 2015-11-21 Outpatient MHIE MHIE [id number] Memoria 10:00:00 10:00:00 02 fauzia [place] 2015-07-31 2015-07-31 Outpatient MHIE MHIE [id number] Memoria 11:00:00 11:00:00 00 fauzia [place] 2015-06-25 2015-06-25 Outpatient MHIE MHIE [id number] Memoria 14:30:00 14:30:00 01 fauzia [place] 2013-11-27 2013-11-28 Outpt Diag nullFlavo [facility] [id number] Memoria 17:09:00 04:59:00 Services r Outpatient 02 l Imaging [facility] 2013-01-27 2013-01-27 Emergency nullFlavo [id number] Memoria 15:57:00 23:26:00 r [place] 00 fauzia [place] Results Test Test Test Results Result Source Description Time Comments Comments Fluoroscopy HISTORY: Right shoulder University of arthrogram 19 pain. COMPARISON: None. [facility] shoulder right 17:07:12 TECHNIQUE: Shoulder B ranch arthrography technique and involved risks werediscussed with the patient. She appeared to understand everything andagreed. Using aseptic precautions and with local anesthesia, -mdjzc needle was advanced into the joint using fluoroscopy andsubsequently a mixture of 12 mL of saline/1 mL of 1% Xylocaine/5 mLOmnipaque 300 were injected into the glenohumeral compartment. Patienttolerated the procedure well and experienced no apparent complications. Multiple digital fluoroscopic spot images were obtained. Patient was thentransferred to CT suite. ? ? ? FINDINGS: Immediate leakage of contrast medium from the glenohumeralcompartment into subdeltoid bursa was detected due to a full-thickness tearin the supraspinatus tendon. Moderate AC joint hypertrophic degenerativearthrosis is noted causing impingement. Bicipital anchor and bicipitaltendon appear intact. Glenohumeral joint space appears normal. CONCLUSIONS: Abnormal right shoulder arthrogram consistent withfull-thickness tear in the supraspinatus tendon.[facility], Radiant Results Inft User - 05/30/2020 11:08 AM CSTHISTORY: Right shoulder pain.COMPARISON: None.TECHNIQUE: Shoulder arthrography technique and involved risks werediscussed with the patient. She appeared to understand everything andagreed. Using aseptic precautions and with local anesthesia, zemwvptujm23-xmuil needle was advanced into the joint using fluoroscopy andsubsequently a mixture of 12 mL of saline/1 mL of 1% Xylocaine/5 mLOmnipaque 300 were injected into the glenohumeral compartment. Patienttolerated the procedure well and experienced no apparent complications.Multiple digital fluoroscopic spot images were obtained. Patient was thentransferred to CT suite. FINDINGS: Immediate leakage of contrast medium from the glenohumeralcompartment into subdeltoid bursa was detected due to a full-thickness tearin the supraspinatus tendon. Moderate AC joint hypertrophic degenerativearthrosis is noted causing impingement. Bicipital anchor and bicipitaltendon appear intact. Glenohumeral joint space appears normal.CONCLUSIONS: Abnormal right shoulder arthrogram consistent withfull-thickness tear in the supraspinatus tendon. CT shoulder 2020-05- HISTORY: Right shoulder University of right with 19 pain. COMPARISON: Shoulder [facility] contrast 16:56:07 arthrogram study performed [place] today. TECHNIQUE: Multidetector post arthrogram CT scan of right shoulder wascompleted followed by numerous sagittal and coronal re-formations. FINDINGS: Contrast medium outlines the glenohumeral joint capsule with freeleaking of contrast medium into the subacromial and subdeltoid bursa whichconfirms an underlying full-thickness tear in the supraspinatus tendon. Therest of the rotator cuff tendons appear intact.Small amount of fluid is seen surrounding the bicipital tendon in theintertubercular groove region. Its superior anchor appears intact. Anondisplaced tear detected in the posterior superior labrum atapproximately 2:00 location. Rest of the labrum is intact. AC joint showed hypertrophic degenerative arthrosis causing impingement. Nosubcoracoid impingement suspected. Subcortical degenerative cystic lesionsare seen in the head of the humerus near the greater tuberosity. No abnormality seen in the spinoglenoid notch region. CONCLUSIONS:1. Full-thickness tear in the right supraspinatus tendon.2. Nondisplaced tear in the posterior superior labrum.3. Hypertrophic degenerative AC joint arthrosis causing rotator cuffimpingement. [facility], Radiant Results Inft User - 05/30/2020 10:57 AM CSTHISTORY: Right shoulder pain.COMPARISON: Shoulder arthrogram study performed today.TECHNIQUE: Multidetector post arthrogram CT scan of right shoulder wascompleted followed by numerous sagittal and coronal re-formations.FINDINGS: Contrast medium outlines the glenohumeral joint capsule with freeleaking of contrast medium into the subacromial and subdeltoid bursa whichconfirms an underlying full-thickness tear in the supraspinatus tendon. Therest of the rotator cuff tendons appear intact.Small amount of fluid is seen surrounding the bicipital tendon in theintertubercular groove region. Its superior anchor appears intact. Anondisplaced tear detected in the posterior superior labrum atapproximately 2:00 location. Rest of the labrum is intact.AC joint showed hypertrophic degenerative arthrosis causing impingement. Nosubcoracoid impingement suspected. Subcortical degenerative cystic lesionsare seen in the head of the humerus near the greater tuberosity.No abnormality seen in the spinoglenoid notch region.CONCLUSIONS:1. Full-thickness tear in the right supraspinatus tendon.2. Nondisplaced tear in the posterior superior labrum.3. Hypertrophic degenerative AC joint arthrosis causing rotator cuffimpingement. CHEM PANEL 2019-08-10 20:17:00 Test Item Value Reference Range Interpretation Comme nts Creatinine Lvl (test code = Creatinine Lvl) 0.65 0.50-1.40 [facility] [id number] 20:17:00 Test Item Value Reference Range Interpretation Comments eGFR (test code = eGFR) 94 [facility] [id number] 20:17:00 Test Item Value Reference Range Interpretation Comments Hgb (test code = Hgb) 12.1 12.0-16.0 [facility] M[facility]M BILATERAL SARAH CAD [id number] 14:41:16 - SCR MAMM BILATERAL SARAH CAD DIGITALBILATERAL FIRST EVER DIGITAL SCREENING MAMMOGRAM 3D/2D WITH CAD: 06/13/2018CLINICAL: Asymptomatic. Digital breast tomosynthesis was performed in addition to routine CC and MLO views. Current mammographic images were evaluated by either a [employer] M-Vu or a [employer] ImageInboxQcker CAD (computer aided detection system). Comparison is made to exams dated 04/12/2017 mammogram - [facility], 06/12/2013 mammogram, 04/25/2012 mammogram, 04/23/2011 mammogram,and 02/11/2010 mammogram - [facility]. The tissue of both breasts is predominantly fatty. No suspicious mass, architectural distortion, malignant type calcification, or lymph node abnorma lity detected. Breast architecture is stable compared to prior exams.IMPRESSION: NEGATIVEThere is no mammographic evidence of malignancy. Resume annual screening mammography in one year. David Pimentel M.D. ss/penrad:06/13/2018 14:41:16 Automatic Line Set Up Mechanic: Marcial METZGER, [facility] sent: BIRADS 1-2 Normal Mammogram BI-RADS: 1 Negative [id number] 01:05:00 Test Item Value Reference Range Interpretation Comments Lactic Acid Lvl (test code = Lactic 0.9 0.5-2.2 N Acid Lvl) [id number] 21:40:00 Test Item Value Reference Range Interpretation Comments Segs-Bands # (test code = Segs-Bands #) 4.5 1.5-8.1 N [facility] [id number] 21:40:00 Test Item Value Reference Range Interpretation Comments Lymphocytes # (test code = Lymphocytes 2.7 1.0-5.5 N #) [facility] [id number] 21:40:00 Test Item Value Reference Range Interpretation Comments Eosinophils (test code = 2.6 See_Comment N [A utomated message] The Eosinophils) system which ge nerated this result tra nsmitted reference range : <=4.0. The reference r yazmin was not used to int erpret this result as normal/abnormal . [facility] [id number] 21:40:00 Test Item Value Reference Range Interpretation Comments Basophils (test code = 0.5 See_Comment N [Aut omated message] The Basophils) system which ge nerated this result tra nsmitted reference range : <=1.0. The reference r yazmin was not used to int erpret this result as normal/abnormal . [facility] [id number] 21:40:00 Test Item Value Reference Range Interpretation Comments Monocytes (test code = Monocytes) 12.3 2.0-12.0 H [facility] [id number] 21:40:00 Test Item Value Reference Range Interpretation Comments Segs (test code = Segs) 53.0 45.0-75.0 N [facility] [id number] 21:40:00 Test Item Value Reference Range Interpretation Comments Lymphocytes (test code = Lymphocytes) 31.6 20.0-40.0 N [facility] C[id number] 21:40:00 Test Item Value Reference Range Interpretation Comments Hgb (test code = Hgb) 11.9 12.0-16.0 L [facility] [id number] 21:40:00 Test Item Value Reference Range Interpretation Comments Hct (test code = Hct) 36.3 36.0-48.0 N [facility] [id number] 21:40:00 Test Item Value Reference Range Interpretation Comments MCHC (test code = MCHC) 32.9 32.0-36.0 N [facility] [id number] 21:40:00 Test Item Value Reference Range Interpretation Comments MCV (test code = MCV) 87.5 81.0-99.0 N [facility] CenterWvbntwjEGMMEZIIJH3487-88-32 21:40:00 Test Item Value Reference Range Interpretation Comments MCH (test code = MCH) 28.8 pg 27.0-31.0 N [facility] [id number] 21:40:00 Test Item Value Reference Range Interpretation Comments RBC (test code = RBC) 4.15 4.20-5.40 L [facility] C[id number] 21:40:00 Test Item Value Reference Range Interpretation Comments WBC (test code = WBC) 8.6 3.7-10.4 N [facility] CenterRnutgxhGRQFJYTXUE8736-07-19 21:40:00 Test Item Value Reference Range Interpretation Comments Platelet (test code = Platelet) 359 133-450 N [facility] CenterHazjbodAOHCVGGUCS3637-06-13 21:40:00 Test Item Value Reference Range Interpretation Comments MPV (test code = MPV) 8.2 7.4-10.4 N [facility] CenterExkitouJOPIZPVHMI6508-17-91 21:40:00 Test Item Value Reference Range Interpretation Comments RDW (test code = RDW) 15.5 11.5-14.5 [id number] 21:40:00 Test Item Value Reference Range Interpretation Comments UA Color (test code = UA Color) Colorless [facility] H[id number] 21:40:00 Test Item Value Reference Range Interpretation Comments UA Urobilinogen (test code *NA*(01/27/2013 0.1-1.0 = UA Urobilinogen) 16:40:00) [id number] 21:40:00 Test Item Value Reference Range Interpretation Comments UA WBC (test code = no gt See_Comment N [Automa titus message] The UA WBC) system which ge nerated this result transmit titus reference range : <=5. The reference range was not used to interpr et this result as maia l/abnormal. [facility] H[id number] 21:40:00 Test Item Value Reference Range Interpretation Comments UA Bacteria (test code Occasional /HPF = UA Bacteria) *NA*(01/27/2013 16:40:00) [id number] 21:40:00 Test Item Value Reference Range Interpretation Comments UA Sq Epi (test code Occasional /LPF = UA Sq Epi) *NA*(01/27/2013 16:40:00) [facility] H[id number] 21:40:00 Test Item Value Reference Range Interpretation Comments UA Leuk Est (test Negative (01/27/2013 N code = UA Leuk Est) 16:40:00) [facility] H[id number] 21:40:00 Test Item Value Reference Range Interpretation Comments UA Protein (test code Negative mg/dL N = UA Protein) (01/27/2013 16:40:00) [facility] HospitalPwvlxrpOESNSYQSNT7375-03-11 21:40:00 Test Item Value Reference Range Interpretation Comments UA pH (test code = UA pH) 7.0 5.0-8.0 N [facility] Hospit[id number] 21:40:00 Test Item Value Reference Range Interpretation Comments UA Ketones (test code Negative mg/dL = UA Ketones) *NA*(01/27/2013 16:40:00) [facility] Hospit[id number] 21:40:00 Test Item Value Reference Range Interpretation Comments UA Glucose (test code Negative mg/dL = UA Glucose) *NA*(01/27/2013 16:40:00) [facility] Hospit[id number] 21:40:00 Test Item Value Reference Range Interpretation Comments UA Bili (test code = Negative *NA*(01/27/2013 UA Bili) 16:40:00) [facility] HospitalIegxxybTJXVWPPIVL0720-40-33 21:40:00 Test Item Value Reference Range Interpretation Comments UA Blood (test code = Small *ABN*(01/27/2013 A UA Blood) 16:40:00) [facility] Hospit[id number] 21:40:00 Test Item Value Reference Range Interpretation Comments UA Nitrite (test code Negative (01/27/2013 N = UA Nitrite) 16:40:00) [facility] Hospit[id number] 21:40:00 Test Item Value Reference Range Interpretation Comments UA Spec Grav (test code = UA Spec Grav) 1.001 N [facility]rgzvnxMTOXULUCIE7696-61-94 21:40:00 Test Item Value Reference Range Interpretation Comments UA Turbidity (test code = Clear (01/27/2013 N UA Turbidity) 16:40:00) [facility] CenterEbiyyzfSZLKFODIS0212-07-07 21:40:00 Test Item Value Reference Range Interpretation Comments Chloride Lvl (test code = Chloride Lvl) 104 95-109 N [facility] Hospi[id number] 21:40:00 Test Item Value Reference Range Interpretation Comments Potassium Lvl (test code = Potassium 4.1 3.5-5.1 N Lvl) [facility] HospitalYfsbjskITDJRYTUN9065-55-77 21:40:00 Test Item Value Reference Range Interpretation Comments Sodium Lvl (test code = Sodium Lvl) 143 135-145 N [facility] HospitalAyuhrgjWGHCQRTFK1462-50-33 21:40:00 Test Item Value Reference Range Interpretation Comments eGFR (test code = eGFR) 71 [facility] Hospi[id number] 21:40:00 Test Item Value Reference Range Interpretation Comments Glucose Lvl (test code = Glucose Lvl) 94 70-99 N [facility] HospitalBavlqofQSDSDPGDK9279-78-05 21:40:00 Test Item Value Reference Range Interpretation Comments Bili Total (test code = Bili Total) 0.6 0.2-1.3 N [facility] HospitalZwrpztyECHTXNJMB8628-28-04 21:40:00 Test Item Value Reference Range Interpretation Comments ALT (test code = ALT) 67 See_Comment H [Auto mated message] The system which ge nerated this result transmit titus reference range : <=65. The reference range was not used to interpr et this result as maia l/abnormal. [facility] HospitalGpreikyNZPAVIJUR4779-29-50 21:40:00 Test Item Value Reference Range Interpretation Comments Alk Phos (test code = Alk Phos) 122 39-136 N [facility] HospitalBmywlkqBKCBIWDWA4118-04-05 21:40:00 Test Item Value Reference Range Interpretation Comments Albumin Lvl (test code = Albumin Lvl) 4.1 3.5-5.0 N [facility] HospitalPqxvjryFYPWKRGFH5060-57-95 21:40:00 Test Item Value Reference Range Interpretation Comments CO2 (test code = CO2) 28 24-32 N [facility] HospitalYlsdaobPVTNUHEZR4880-22-63 21:40:00 Test Item Value Reference Range Interpretation Comments Calcium Lvl (test code = Calcium Lvl) 9.4 8.5-10.5 N [facility] HospitalQbchrvoHVBWRFNYF2306-17-29 21:40:00 Test Item Value Reference Range Interpretation Comments Total Protein (test code = Total 8.9 6.4-8.4 H Protein) [facility] Hospi[id number] 21:40:00 Test Item Value Reference Range Interpretation Comments Creatinine Lvl (test code = Creatinine 0.9 0.5-1.4 N Lvl) [facility] HospitalOvjuwboMZGSRJYSX9404-74-75 21:40:00 Test Item Value Reference Range Interpretation Comments BUN (test code = BUN) 11 7-22 N [facility] Hospi[id number] 21:40:00 Test Item Value Reference Range Interpretation Comments AST (test code = AST) 36 See_Comment N [Auto mated message] The system which ge nerated this result transmit titus reference range : <=37. The reference range was not used to interpr et this result as maia l/abnormal. [facility] HospitalMhsoutxZHRYGVZIC5619-14-59 21:40:00 Test Item Value Reference Range Interpretation Comments B/C Ratio (test code = B/C Ratio) 12 6-25 N [facility] HospitalVgzdzaxJGPCCQYFC8122-03-51 21:40:00 Test Item Value Reference Range Interpretation Comments Globulin (test code = Globulin) 4.8 2.0-4.0 H [facility] Hospi[id number] 21:40:00 Test Item Value Reference Range Interpretation Comments A/G Ratio (test code = A/G Ratio) 0.9 0.7-1.6 N [facility] HospitalWvsewgeXMAKEVXSB8559-12-33 21:40:00 Test Item Value Reference Range Interpretation Comments AGAP (test code = AGAP) 15.1 10.0-20.0 N [id number] 21:40:00 Test Item Value Reference Range Interpretation Comments Eosinophils # (test code 0.2 See_Comment N [A utomated message] The = Eosinophils #) system whic h generated this result tra nsmitted reference range : <=0.5. The reference r yazmin was not used to int erpret this result as normal/abnormal . [facility] [id number] 21:40:00 Test Item Value Reference Range Interpretation Comments Basophils # (test code 0.0 See_Comment N [Aut omated message] The = Basophils #) system which generated this result tra nsmitted reference range : <=0.2. The reference r yazmin was not used to int erpret this result as normal/abnormal . [facility] CenterCtuelojSQAGBLWFGT8460-52-52 21:40:00 Test Item Value Reference Range Interpretation Comments Monocytes # (test code 1.1 See_Comment H [Aut omated message] The = Monocytes #) system which generated this result tra nsmitted reference range : <=0.8. The reference r yazmin was not used to int erpret this result as normal/abnormal . [facility]
[2021-09-25] MEDS ORDERED: MORPHINE 4 MG/ML SYR ONE (17:28)
[2021-09-25] MEDS ORDERED: ONDANSETRON 4 MG/2 ML VIAL ONE (17:28)
[2021-09-25] MEDS ORDERED: NA CHLORIDE 0.9% 1,000 ML ONE (17:28)
[2021-09-25 17:34] LABS: Absolute Lymphocytes (CBC) 2.3 K/uL (0.7-4.9); Lymphocytes % 35.1 % (15.3-44.8); RBC Red Blood Cell Count 3.86 M/uL (3.86-4.86)
[2021-09-25 17:35] LABS: Protime INR 1.06
[2021-09-25 17:46] LABS: BUN Blood Urea Nitrogen 10 mg/dL (7-18); Bicarbonate 28 mmol/L (21-32); Glucose Level 136 mg/dL (74-106); Potassium 3.8 mmol/L (3.5-5.1); Sodium Level 140 mmol/L (136-145)
--- NOTE | 2021-09-25 18:13 | RAD REPORT ---
EXAM DESCRIPTION: RAD - Wrist Left 3 View - 09/25/2021 5:59 pm CLINICAL HISTORY: PAIN COMPARISON: No comparisons FINDINGS: No fracture of the distal radius or ulna. There is no dislocation or periosteal reaction. There is a small crescent shaped 4-5 mm bone density along the dorsal margin of the first carpal row probably a small avulsion from the triquetrum bone. There is soft tissue swelling in this region. Deg enerative changes are present at the trapezium first metacarpal articulation and mild degenerative ch yazmin at the scaphoid trapezium articulation. No foreign body or other soft tissue abnormality. IMPRESSION: Small 4-5 mm bone avulsion is seen off the dorsal margin of the triquetrum bone. Overlyi ng soft tissue swelling present.
--- NOTE | 2021-09-25 18:14 | RAD REPORT ---
EXAM DESCRIPTION: RAD - Humerus Left - 09/25/2021 5:58 pm CLINICAL HISTORY: Fall, left arm pain COMPARISON: None. FINDINGS: No fracture is identified. There is no dislocation or periosteal reaction noted. No forei gn body or other soft tissue abnormality. IMPRESSION: Negative left humerus examination.
--- NOTE | 2021-09-25 18:15 | RAD REPORT ---
EXAM DESCRIPTION: RAD - Ankle Left 3 View - 09/25/2021 5:59 pm CLINICAL HISTORY: PAINfollowing fall COMPARISON: No comparisons FINDINGS: Multiple portable AP and cross-table lateral views were obtained. Positioning is suboptima l. No fracture, dislocation or periosteal reaction. No joint effusion seen. No joint space narrowing. No soft tissue abnormality. IMPRESSION: Negative left ankle for fracture or other acute finding.
--- NOTE | 2021-09-25 18:16 | RAD REPORT ---
EXAM DESCRIPTION: RAD - Pelvis - 09/25/2021 5:58 pm CLINICAL HISTORY: fall COMPARISON: No comparisons TECHNIQUE: AP imaging of the pelvis was obtained. FINDINGS: No fracture is identified. No pathologic bone process seen. Mild SI joint degenerative rosa nges are present. Mild symmetric degenerative changes are seen along age superior acetabular rim. No suspicious soft tissue finding. IMPRESSION: No fracture or acute pelvic finding identified.
--- NOTE | 2021-09-25 19:36 | RAD REPORT ---
EXAM DESCRIPTION: CT - Head C Spine Cap W Con - 09/25/2021 6:32 pm CLINICAL HISTORY: fall COMPARISON: <Comparisons> TECHNIQUE: Axial [address] head images were obtained. Axial [address] cervical spine images were obtaine d with sagittal and coronal reconstruction images reviewed. During dynamic enhancement of 100mL non-i onic contrast, axial 5 mm images of the chest, abdomen and pelvis were obtained. Biphasic technique p erformed of the abdomen and pelvis. All CT scans are performed using dose optimization technique as appropriate and may include automated exposure control or mA/KV adjustment according to patient size. FINDINGS: No intracranial hemorrhage, mass or edema. No midline shift or abnormal fluid collection. Mastoid air cells and paranasal sinuses are clear. No skull fracture. CT cervical spine imaging shows normal height. Normal alignment of the vertebrae. C6-7 and C7-T1 disc space narrowing seen. Prominent anterior spurs at C6-7. There are prominent degenerative changes the dens C1 level. Facet joint degenerative changes are present throughout the cervical spine. There is bilateral foraminal stenosis at C2-3 and significant right foraminal stenosis at C4-5. Mild foraminal stenosis right C5-6. No paraspinal mass or hematoma seen. Central canal detail is inherently limited . Concerns for traumatic disc herniation or traumatic cord injury can be further addressed with MR im aging. CT chest shows no pneumothorax, pulmonary contusion or pleural fluid collection. No mediastinal hemat thor and the aorta and pulmonary arteries are unremarkable. No chest will mass or abnormal axillary fi nding. No displaced rib fracture or other significant bony finding. CT abdomen and pelvis show no injury to solid abdominal viscera. Gallbladder is absent. No biliary tr ee dilatation. Uterus is absent. Or re- show no suspicious findings. No bowel injury or significant f inding. No free air, free fluid or abnormal stranding. No urinary bladder abnormality. Disc and bone degenerative changes are present. No acute spine, pelvis or hip joint abnormality. No significant vascular finding. IMPRESSION: No significant CT Head finding. Degenerative change with no acute CT cervical spine finding. No significant CT Chest finding. No significant CT Abdomen and Pelvis finding.
--- NOTE | 2021-09-25 21:13 | EDPHYS ---
Physician Documentation [facility] Name: Zee Neri Age: 65 yrs Sex: Female : 1955 Arrival Date: 09/25/2021 Time: 17:03 Bed 19 Private MD: ED Physician Kwaku Crena HPI: 09/25 17:15 This 65 yrs old Female presents to ER via EMS with complaints of Fall Injury. cp 17:15 Details of fall: The patient fell from an upright position, while standing, and struck cp a concrete surface, a grass-covered surface. Onset: The symptoms/episode began/occurred just prior to arrival. Associated injuries: The patient sustained left upper arm, painful injury, left wrist, painful injury, left ankle, decreased range of motion, ecchymosis, painful injury. 17:15 Patient reports slip and fall on wet surface outside and then rolling into ditch. cp Denies LOC. Historical: - Allergies: 17:08 Sulfa (Sulfonamide Antibiotics); ab2 - PMHx: 17:08 Hypertensive disorder; ab2 - PSHx: 17:08 Pacemaker; Stented artery; Tonsillectomy; Hysterectomy; Cholecystectomy; ab2 - Immunization history:: Adult Immunizations up to date. - Social history:: Smoking status: unknown. ROS: 17:20 Constitutional: Negative for body aches, chills, fever, poor PO intake. cp 17:20 Cardiovascular: Negative for chest pain, palpitations. cp 17:20 Respiratory: Negative for cough, shortness of breath, wheezing. 17:20 Abdomen/GI: Negative for abdominal pain, nausea, vomiting, and diarrhea. 17:20 MS/extremity: Positive for injury or acute deformity, decreased range of motion, pain, of the left upper arm and left wrist and left ankle. 17:20 Neuro: Negative for altered mental status, loss of consciousness. 17:20 All other systems are negative. Exam: 17:25 Constitutional: The patient appears in no acute distress, alert, awake, cp non-diaphoretic, non-toxic, well developed, well nourished. 17:25 Head/Face: Normocephalic, atraumatic. cp 17:25 Eyes: Periorbital structures: appear normal, Pupils: equal, round, and reactive to light and accomodation, Extraocular movements: intact throughout, Lids and lashes: appear normal, bilaterally. 17:25 ENT: External ear(s): are unremarkable, Nose: is normal, Mouth: Lips: moist, Oral mucosa: pink and intact, moist, Posterior pharynx: Airway: no evidence of obstruction, patent. 17:25 Neck: C-spine: vertebral tenderness, is not appreciated, crepitus, is not appreciated, ROM/movement: pain, that is mild, with any movement, limited range of motion, is not appreciated. 17:25 Chest/axilla: Inspection: normal, Palpation: crepitus, is not appreciated, tenderness, that is mild, of the left lateral posterior chest and left lateral anterior chest. 17:25 Cardiovascular: Rate: normal, Rhythm: regular. 17:25 Respiratory: the patient does not display signs of respiratory distress, Respirations: normal, no use of accessory muscles, no retractions, labored breathing, is not present, Breath sounds: are clear throughout, no decreased breath sounds, no stridor, no wheezing. 17:25 Abdomen/GI: Inspection: abdomen appears normal, Bowel sounds: active, Palpation: soft, in all quadrants, mild abdominal tenderness, in the posterior aspect of left lateral abdomen and anterior aspect of left lateral abdomen. 17:25 Back: vertebral tenderness, is not appreciated. 17:25 Musculoskeletal/extremity: Extremities: grossly normal except: noted in the left upper arm: pain, There is no evidence of decreased ROM, deformity, noted in the left wrist: pain, swelling, tenderness, no evidence of decreased ROM, noted in the left ankle: decreased ROM, ecchymosis, pain, swelling, tenderness, Pulses: noted to be 2+ in the left radial artery and left dorsalis pedis artery. 17:25 Neuro: Orientation: to person, place \T\ time. Mentation: is normal, Motor: moves all fours, strength is normal, Sensation: is normal. Vital Signs: 17:04 BP 161 / 91; Pulse 75; Resp 19; Temp 97.9; Pulse Ox 100% on R/A; Weight 108.86 kg; ab2 Height 5 ft. 8 in. (172.72 cm); Pain 9/10; 17:53 BP 149 / 67; Pulse 71; Resp 17; Pulse Ox 98% on R/A; ab2 19:15 BP 140 / 65; Pulse 61; Resp 18; Pulse Ox 95% on R/A; ll3 21:38 BP 138 / 67; Pulse 58; Resp 16; Pulse Ox 98% on R/A; ll3 17:04 Body Mass Index 36.49 (108.86 kg, 172.72 cm) ab2 MDM: 17:06 Patient medically screened. cp 18:00 Differential diagnosis: closed head injury, contusion, fracture, multiple trauma. cp 21:10 Data reviewed: vital signs, nurses notes, lab test result(s), radiologic studies, CT cp scan, plain films. 21:10 Test interpretation: by ED physician or midlevel provider: plain radiologic studies. cp Counseling: I had a detailed discussion with the patient and/or guardian regarding: the historical points, exam findings, and any diagnostic results supporting the discharge/admit diagnosis, radiology results, the need for outpatient follow up, a orthopedic surgeon, to return to the emergency department if symptoms worsen or persist or if there are any questions or concerns that arise at home. Response to treatment: the patient's symptoms have markedly improved after treatment, and as a result, I will discharge patient. 21:11 ED course: VSS. Pain improved with meds. Discussed results of radiology studies and cp will discharge to home for continued monitoring. 09/25 17:06 Order name: Basic Metabolic Panel; Complete Time: 19:23 cp 09/25 19:23 Interpretation: Normal except: GLUC 136. cp 09/25 17:06 Order name: CBC with Diff; Complete Time: 19:23 cp 09/25 19:24 Interpretation: Normal except: HGB 11.5; HCT 34.0. cp 09/25 17:06 Order name: Type And Screen; Complete Time: 19:23 cp 09/25 17:06 Order name: PT-INR; Complete Time: 19:23 cp 09/25 17:06 Order name: XRAY Pelvis cp 09/25 17:06 Order name: XRAY Humerus LEFT; Complete Time: 19:23 cp 09/25 19:24 Interpretation: Report reviewed. cp 09/25 17:06 Order name: XRAY Wrist LEFT 3 view; Complete Time: 19:23 cp 09/25 19:24 Interpretation: Report reviewed. cp 09/25 17:06 Order name: XRAY Ankle LEFT 3 view; Complete Time: 19:23 cp 09/25 19:25 Interpretation: Report reviewed. cp 09/25 17:06 Order name: Pelvis; Complete Time: 19:23 EDMS 09/25 19:25 Interpretation: Report reviewed. cp 09/25 18:40 Order name: ABO/RH no charge; Complete Time: 19:23 EDMS 09/25 17:06 Order name: Labs collected and sent; Complete Time: 17:53 cp 09/25 17:17 Order name: CT Traumagram (Head C Spine CAP W Con); Complete Time: 20:05 cp 09/25 17:40 Order name: Labs - recollect needed: recollect type and screen,shazia pt; Complete bd Time: 17:52 09/25 20:35 Order name: Splint - Wrist; Complete Time: 21:29 cp 09/25 20:35 Order name: Walking boot; Complete Time: 21:29 cp 09/25 20:35 Order name: Sling; Complete Time: 21:28 cp Administered Medications: 17:53 Drug: morphine 4 mg Route: IVP; Site: left antecubital; ab2 19:07 Follow up: Response: No adverse reaction ab2 17:53 Drug: Zofran (Ondansetron) 4 mg Route: IVP; Site: left antecubital; ab2 19:07 Follow up: Response: No adverse reaction ab2 17:53 Drug: NS 0.9% 500 ml Route: IV; Rate: bolus; Site: left antecubital; ab2 19:07 Follow up: Response: No adverse reaction; IV Status: Completed infusion ab2 17:54 Drug: NS 0.9% 500 ml Route: IV; Rate: 125 ml/hr; Site: left antecubital; ab2 Disposition: 09/26 07:38 Co-signature as Attending Physician, Kwaku Cerna MD I agree with the assessment and kdr plan of care. Disposition Summary: 09/25/21 21:12 Discharge Ordered Location: Home cp Problem: new cp Symptoms: have improved cp Condition: Stable cp Diagnosis - Left Wrist Avulsion Fracture cp - Sprain of unspecified ligament of left ankle cp - Pain in left shoulder cp - Fall on same level from slipping, tripping and stumbling without subsequent cp striking against object - Pain in left hip cp Followup: cp - With: Moo Barraza MD - When: 2 - 3 days - Reason: Recheck today's complaints Discharge Instructions: - Discharge Summary Sheet cp - Ankle Sprain cp - Shoulder Pain cp - Wrist Fracture Treated With Immobilization cp - Shoulder Range of Motion Exercises cp - Hip Pain cp Forms: - Medication Reconciliation Form cp - Thank You Letter cp - Antibiotic Education cp - Prescription Opioid Use cp Prescriptions: - Ibuprofen 800 mg Oral Tablet - take 1 tablet by ORAL route every 8 hours As needed take with food; 30 tablet; cp Refills: 0, Product Selection Permitted - Ultracet 37.5-325 mg Oral Tablet - take 1 tablet by ORAL route every 6 hours - for up to 5 days; do not exceed 8 cp tablets per day.; 20 tablet; Refills: 0, Product Selection Permitted Signatures: Dispatcher [employer] EDMS Ambreen Angel Kevin, MD MD kdr Page, Corey, PA PA cp Facundo Singletary2 Corrections: (The following items were deleted from the chart) 09/25 17:07 17:06 Basic Metabolic Panel ordered. EDMS EDMS 17:07 17:06 CBC with Automated Diff ordered. EDMS EDMS 17:07 17:06 Type and Screen ordered. EDMS EDMS 17:07 17:06 Protime (+INR) ordered. EDMS EDMS 17:10 17:08 Allergies: No Known Allergies; ab2 ab2 09/26 20:14 09/25 17:15 Associated injuries: The patient sustained left upper arm, painful injury, cp left wrist, painful injury, cp
--- NOTE | 2021-09-25 21:13 | ER ---
Nurse's Notes [facility] Name: Zee Neri Age: 65 yrs Sex: Female : 1955 Arrival Date: 09/25/2021 Time: 17:03 Bed 19 Private MD: Diagnosis: Left Wrist Avulsion Fracture;Sprain of unspecified ligament of left ankle;Pain in left shoulder;Fall on same level from slipping, tripping and stumbling without subsequent striking against object;Pain in left hip Presentation: 09/25 17:04 Chief complaint: Patient states: "I slipped on wet grass and fell into a ditch. The ab2 whole left side of my body hurts." Pt denies LOC or hitting her head. Pt c/o left shoulder, elbow, hip, leg and ankle pain. Swelling noted to left ankle. Coronavirus screen: Vaccine status: Patient reports being unvaccinated. Client denies travel out of the [place] in the last 14 days. At this time, the client does not indicate any symptoms associated with coronavirus-19. Coronavirus screen: Vaccine status: Patient reports receiving the 2nd dose of the covid vaccine. Ebola Screen: Patient negative for fever greater than or equal to 101.5 degrees Fahrenheit, and additional compatible Ebola Virus Disease symptoms Patient denies exposure to infectious person. Patient denies travel to an Ebola-affected area in the 21 days before illness onset. No symptoms or risks identified at this time. Initial Sepsis Screen: Does the patient meet any 2 criteria? No. Patient's initial sepsis screen is negative. Does the patient have a suspected source of infection? No. Patient's initial sepsis screen is negative. Risk Assessment: Do you want to hurt yourself or someone else? Patient reports no desire to harm self or others. Onset of symptoms is unknown. 17:04 Method Of Arrival: EMS: [facility] ab2 17:04 Acuity: DOMENICA 3 ab2 Historical: - Allergies: 17:08 Sulfa (Sulfonamide Antibiotics); ab2 - PMHx: 17:08 Hypertensive disorder; ab2 - PSHx: 17:08 Pacemaker; Stented artery; Tonsillectomy; Hysterectomy; Cholecystectomy; ab2 - Immunization history:: Adult Immunizations up to date. - Social history:: Smoking status: unknown. Screenin:13 Abuse screen: Denies threats or abuse. Denies injuries from another. Nutritional ab2 screening: No deficits noted. Tuberculosis screening: No symptoms or risk factors identified. Fall Risk Fall in past 12 months (25 points). Secondary diagnosis (15 points) IV access (20 points). Ambulatory Aid- None/Bed Rest/Nurse Assist (0 pts). Gait- Normal/Bed Rest/Wheelchair (0 pts) Mental Status- Oriented to own ability (0 pts). Total Santoro Fall Scale indicates High Risk Score (45 or more points). Fall prevention measures have been instituted. Side Rails Up X 2 Placed Close to Nursing Station Frequent Obs/Assessments Occuring Family Present and informed to notify staff if the need to leave the bedside As available patient and family educated on Fall Prevention Program and Strategies. Assessment: 17:10 General: Appears in no apparent distress. uncomfortable, Behavior is calm, cooperative, ab2 appropriate for age. Pain: Complains of pain in left arm, left hand, left leg and left foot Pain does not radiate. Pain currently is 9 out of 10 on a pain scale. Neuro: Level of Consciousness is awake, alert, obeys commands, Oriented to person, place, time, situation, Appropriate for age Speech is normal, Facial symmetry appears normal, Pupils are PERRLA. Cardiovascular: No deficits noted. Denies chest pain, shortness of breath, Heart tones S1 S2 present Patient's skin is warm and dry. Chest pain is denied. Respiratory: No deficits noted. Airway is patent Respiratory effort is even, Respiratory pattern is regular, symmetrical, Breath sounds are clear bilaterally. GI: No deficits noted. No signs and/or symptoms were reported involving the gastrointestinal system. Abdomen is round non-distended, Bowel sounds present X 4 quads. : No deficits noted. No signs and/or symptoms were reported regarding the genitourinary system. EENT: No deficits noted. No signs and/or symptoms were reported regarding the EENT system. Derm:. Musculoskeletal: Swelling present in left foot. Injury Description: Patient fell into ditch and hurt left side of body. 19:28 Reassessment: Patient and/or family updated on plan of care and expected duration. Pain ll3 level reassessed. Patient is alert, oriented x 3, equal unlabored respirations, skin warm/dry/pink. Swelling noted to left wrist and ankle, states fell while walking. Patient states symptoms have not improved. 21:15 Reassessment: Patient and/or family updated on plan of care and expected duration. Pain ll3 level reassessed. Patient is alert, oriented x 3, equal unlabored respirations, skin warm/dry/pink. Assisted to bedside commode, tolerated well. Patient states symptoms have not improved. Vital Signs: 17:04 BP 161 / 91; Pulse 75; Resp 19; Temp 97.9; Pulse Ox 100% on R/A; Weight 108.86 kg; ab2 Height 5 ft. 8 in. (172.72 cm); Pain 9/10; 17:53 BP 149 / 67; Pulse 71; Resp 17; Pulse Ox 98% on R/A; ab2 19:15 BP 140 / 65; Pulse 61; Resp 18; Pulse Ox 95% on R/A; ll3 21:38 BP 138 / 67; Pulse 58; Resp 16; Pulse Ox 98% on R/A; ll3 17:04 Body Mass Index 36.49 (108.86 kg, 172.72 cm) ab2 ED Course: 17:03 Patient arrived in ED. ds1 17:03 Kvng Santacruz PA is PHCP. cp 17:03 Josse Raya MD is Attending Physician. cp 17:03 Facundo Singletary is Primary Nurse. ab2 17:03 Patient has correct armband on for positive identification. Bed in low position. Call mh5 light in reach. Side rails up X2. Adult w/ patient. Warm blanket given. Pillow given. classroom monitor on. Pulse ox on. NIBP on. 17:08 Triage completed. ab2 17:14 Arm band placed on right wrist. ab2 17:14 No provider procedures requiring assistance completed. Maintain EMS IV. Dressing ab2 intact. Good blood return noted. Site clean \\T\\ dry. Gauge \\T\\ site: 20 L AC. 17:53 Type And Screen Sent. ab2 17:59 Pelvis In Process Unspecified. EDMS 17:59 XRAY Humerus LEFT In Process Unspecified. EDMS 17:59 XRAY Wrist LEFT 3 view In Process Unspecified. EDMS 17:59 XRAY Ankle LEFT 3 view In Process Unspecified. EDMS 18:31 CT Traumagram (Head C Spine CAP W Con) In Process Unspecified. EDMS 21:10 Moo Barraza MD is Referral Physician. cp 21:15 Kwaku Cerna MD is Attending Physician. cp Administered Medications: 17:53 Drug: morphine 4 mg Route: IVP; Site: left antecubital; ab2 19:07 Follow up: Response: No adverse reaction ab2 17:53 Drug: Zofran (Ondansetron) 4 mg Route: IVP; Site: left antecubital; ab2 19:07 Follow up: Response: No adverse reaction ab2 17:53 Drug: NS 0.9% 500 ml Route: IV; Rate: bolus; Site: left antecubital; ab2 19:07 Follow up: Response: No adverse reaction; IV Status: Completed infusion ab2 17:54 Drug: NS 0.9% 500 ml Route: IV; Rate: 125 ml/hr; Site: left antecubital; ab2 Outcome: 21:12 Discharge ordered by MD. cp 21:38 Patient left the ED. mw2 Signatures: Dispatcher [employer] EDMS Trinh Trevino ds1 Kvng Santacruz PA PA Ness Gutierrez 5 Cipriano Sanabria mw2 Magui Sequeira RN RN ll3 Facundo Singletary ab2 Corrections: (The following items were deleted from the chart) 17:10 17:08 Allergies: No Known Allergies; ab2 ab2 21:16 19:28 Reassessment: Patient and/or family updated on plan of care and expected ll3 duration. Pain level reassessed. Patient is alert, oriented x 3, equal unlabored respirations, skin warm/dry/pink. Swelling noted to left wrist and ankle, states fell while walking. Patient states symptoms have improved. ll3
[2021-09-25 23:06] VITALS: TEMP 97.9
[2021-09-25 23:09] VITALS: BP 138/67; O2SAT 98
== END 2021-09-25 21:38 | disposition home or self-care (01) ==
LOC: ER 16:51
PROC: 2W3DX1Z Immobilization of Left Lower Arm using Splint (ICD-10-PCS; principal; 2021-09-25)
DX: S62.102A Fracture of unspecified carpal bone, left wrist, initial encounter for closed fracture (principal); S93.402A Sprain of unspecified ligament of left ankle, initial encounter; M25.512 Pain in left shoulder; M25.552 Pain in left hip; W01.0XXA Fall on same level from slipping, tripping and stumbling without subsequent striking against object, initial encounter; I10 Essential (primary) hypertension; Z88.2 Allergy status to sulfonamides; Z95.0 Presence of cardiac pacemaker
CPT/HCPCS: 96361; 85025; 80048; 36415; 86900; 86850; 85610; 86901; 70450; 72125; 71260; 74177; 72170; 73060; 73110; 73610; 96375; 96374; 99284; 29125; Q9967; J7040; J2405

== ENCOUNTER 2021-10-08 09:53 | Day surgery (SDC) | payer MEDICARE ==
--- NOTE | 2021-10-07 12:35 | EKG ---
Test Date: 2021-10-06 Test Time: 13:13:06 Dining Room Supervisor: DUANE MEASUREMENT RESULTS: Intervals: Rate: 68 WY: 122 QRSD: 88 QT: 416 QTc: 442 [place]: P: 50 WY: 122 QRS: 81 T: 130 INTERPRETIVE STATEMENTS: Electronic atrial pacemaker Nonspecific ST and T wave abnormality Abnormal ECG Compared to ECG 05/08/1999 15:01:00 ST (T wave) deviation now present Sinus rhythm no longer present Right-axis deviation no longer present Electronically Signed On 10-07-21 12:33:18 CDT by Ross Galindo
[2021-10-08] MEDS ORDERED: CEFAZOLIN SODIUM 1 GM/VIAL ONE (10:22)
[2021-10-08] MEDS ORDERED: NA CHLORIDE 0.9% 50 ML ONE (10:22)
[2021-10-08] MEDS ORDERED: NA CHLORIDE 0.9% 1,000 ML ONE (10:23)
[2021-10-08] MEDS ORDERED: dexAMETHasone 4 MG/ML VIAL ONE (11:06)
[2021-10-08] MEDS ORDERED: LIDOCAINE 1% MPF 5 ML VIAL ONE (11:06)
[2021-10-08] MEDS ORDERED: FENTANYL CITR 100 MCG/2 ML ONE (11:14)
[2021-10-08] MEDS ORDERED: MIDAZOLAM HCL 2 MG/2 ML INJ ONE (11:14)
[2021-10-08] MEDS ORDERED: LIDOCAINE 2% MPF 5 ML VIAL ONE (11:49)
[2021-10-08] MEDS ORDERED: propofoL 200 MG/20 ML VIAL IV ONE (11:49)
[2021-10-08] MEDS ORDERED: ONDANSETRON 4 MG/2 ML VIAL ONE (12:15)
[2021-10-08] MEDS ORDERED: KETOROLAC 30 MG/ML INJ ONE (12:24)
--- NOTE | 2021-10-08 13:25 | OP ---
Date of Procedure: 10/08/2021 Surgeon: Moo Barraza MD Preoperative Diagnosis: Left ankle medial tibial fracture consistent with supination adduction injur y and vertical fracture line. Postoperative Diagnosis: Left ankle medial tibial fracture consistent with supination adduction inju ry and vertical fracture line. Procedure: Left ankle closed reduction with percutaneous screw fixation. Estimated Blood Loss: Less than 3 cc. Complications: There were no complications. Pathology Specimen: No pathology specimen sent. Indications For Operation: The patient came in to see me in the office with diagnosis of injured ank le without fracture. X-rays were reviewed, which did appear to be a little strange with regard to po sitioning as well as with what appeared to be a faint fracture line. Report was reviewed, which demo nstrated no obvious fracture; however, limitation difficult because of positioning. Decision was mad e to proceed with additional radiographs in my office, which demonstrated a vertical fracture of the medial tibia, which was consistent with a fracture that goes in the joint. Risks, benefits, and alte rnatives of different methods of treating of this were discussed with her and at this time planned fo r screw fixation and nonweightbearing. She agrees to proceed. Description Of Procedure: The patient was taken to the operating room and placed in supine position. General anesthesia was obtained by staff. Following this, a well-padded tourniquet was placed on s uperior left thigh; however, was not used throughout the case. Following this, the left lower extrem ity was then prepped and draped in usual sterile fashion. After this, C-arm was brought in and the f racture line was easily identified. A screw was then placed slightly posterior to anterior near the joint surface of the tibia. This appeared to traverse the fracture well. After this, the cortex was then broached using cannulated drill and 1 cannulated 4.0 screw partially threaded was placed. It a ppeared to compress the fracture well definitely going across the fracture site holding compression. After this, the small stab wound was closed using nylon. The patient then placed in a very well-pad ded sterile dressing including posterior splint as well as stirrup. She was then awakened and taken to recovery room in good condition. There were no complications. SE/MODL Voice ID: [id number] Report ID: [id number]
--- NOTE | 2021-10-08 13:39 | RAD REPORT ---
EXAM DESCRIPTION: RAD - Ankle Left 2 View - 10/08/2021 1:30 pm CLINICAL HISTORY: Left ankle surgery FINDINGS: Two intraoperative fluoroscopic spot images obtained. A screw has been placed into the medial malleolus. Fluoroscopy time 0.3 minutes. Surgery performed by Dr. Barraza
[2021-10-08 13:42] VITALS: O2SAT 95
[2021-10-08 13:47] VITALS: BP 152/71; TEMP 97.4
== END 2021-10-08 14:24 | disposition home or self-care (01) ==
LOC: OR 09:53
PROVIDERS: ATTEND Orthopaedic Surgery
PROC: 0QSG04Z Reposition Right Tibia with Internal Fixation Device, Open Approach (ICD-10-PCS; principal; 2021-10-08 12:00)
DX: S82.55XA Nondisplaced fracture of medial malleolus of left tibia, initial encounter for closed fracture (principal); S82.65XA Nondisplaced fracture of lateral malleolus of left fibula, initial encounter for closed fracture; S62.112A Displaced fracture of triquetrum [cuneiform] bone, left wrist, initial encounter for closed fracture; Z20.822 Contact with and (suspected) exposure to COVID-19
CPT/HCPCS: 93005; 82947; 73600; 27827; U0003; J2704; J1100; J2250; J3010; J7030; J2405; J0690

== ENCOUNTER 2023-10-14 06:20 | Emergency (ER) | payer MEDICARE, OTHER ==
[2023-10-14] MEDS ORDERED: LIDOCAINE 2% W/EPI 1:200,000 MPF 20 ML VIAL IM ONE (06:46)
--- NOTE | 2023-10-14 08:30 | ER ---
Nurse's Notes [facility] Name: Zee Neri Age: 68 yrs Sex: Female : 1955 Arrival Date: 10/14/2023 Time: 06:20 Bed 6 Private MD: Diagnosis: Oral bleeding - Dental bridge Presentation: 10/13 06:49 Chief complaint: Patient states: I woke up and I had clots coming out of my mouth. I jb4 went to bed fine and I woke up, went to wipe my mouth because I thought it was dry, and I saw blood. Coronavirus screen: At this time, the client does not indicate any symptoms associated with coronavirus-19. Ebola Screen: No symptoms or risks identified at this time. Initial Sepsis Screen: Does the patient meet any 2 criteria? No. Patient's initial sepsis screen is negative. Does the patient have a suspected source of infection? No. Patient's initial sepsis screen is negative. Risk Assessment: Do you want to hurt yourself or someone else? Patient reports no desire to harm self or others. Onset of symptoms was October 14, 2023. Transition of care: patient was not received from another setting of care. 06:49 Method Of Arrival: Wheelchair jb4 06:49 Acuity: DOMENICA 3 jb4 Triage Assessment: 06:51 General: Appears in no apparent distress. comfortable, Behavior is calm, cooperative, jb4 appropriate for age. Pain: Denies pain. EENT: blood noted in mouth. Neuro: Level of Consciousness is awake, alert, obeys commands, Oriented to person, place, time, situation. Cardiovascular: Patient's skin is warm and dry. Respiratory: Airway is patent Respiratory effort is even, unlabored, Respiratory pattern is regular, symmetrical. GI: No signs and/or symptoms were reported involving the gastrointestinal system. : No signs and/or symptoms were reported regarding the genitourinary system. Derm: Skin is intact, Skin is pink, warm \T\ dry. Musculoskeletal: Circulation, motion, and sensation intact. Range of motion: intact in all extremities. Historical: - Allergies: 06:51 Sulfa (Sulfonamide Antibiotics); jb4 - PMHx: 06:51 Hypertensive disorder; jb4 - PSHx: 06:51 Cholecystectomy; hysterectomy; pacemaker; Stented artery; Tonsillectomy; jb4 - Immunization history:: Adult Immunizations up to date. - Infectious Disease History:: Denies. - Social history:: Smoking status: Patient denies any tobacco usage or history of. - Family history:: not pertinent. Screenin:52 [facility] ED Fall Risk Assessment (Adult) History of falling in the last 3 months, jb4 including since admission No falls in past 3 months (0 pts) Confusion or Disorientation No (0 pts) Score/Fall Risk Level 0 - 2 = Low Risk Oriented to surroundings, Maintained a safe environment. Abuse screen: Denies threats or abuse. Nutritional screening: No deficits noted. Tuberculosis screening: No symptoms or risk factors identified. Assessment: 06:52 Reassessment: see triage note. jb4 07:52 Reassessment: Patient appears in no apparent distress at this time. No changes from kc6 previously documented assessment. Patient and/or family updated on plan of care and expected duration. Pain level reassessed. Patient is alert, oriented x 3, equal unlabored respirations, skin warm/dry/pink. Vital Signs: 06:49 BP 168 / 70; Pulse 60; Resp 16; Temp 97.4(TE); Pulse Ox 98% on R/A; Weight 99.34 kg (R);jb4 07:59 BP 143 / 58; Pulse 60; Resp 16 S; Pulse Ox 92% on R/A; kc6 Ilene Coma Score: 07:17 Eye Response: spontaneous(4). Motor Response: obeys commands(6). Verbal Response: sp4 oriented(5). Total: 15. ED Course: 06:27 Patient arrived in ED. gm2 06:28 Brooks Chu MD is Attending Physician. sp4 06:51 Triage completed. jb4 06:51 Arm band placed on right wrist. jb4 06:52 Patient has correct armband on for positive identification. Bed in low position. Call jb4 light in reach. Side rails up X 1. Provided Education on: plan of care. 07:00 Report received from BRIDGET Christy. kc6 07:16 Attending Physician role handed off by Brooks Chu MD rn 07:16 Fran Mckay MD is Attending Physician. rn 08:[address] An called and connected with Dr. Mckay. eb 08:29 Newton An DDS is Referral Physician. rn 08:47 No provider procedures requiring assistance completed. Patient did not have IV access kc6 during this emergency room visit. Administered Medications: 06:53 Not Given (Other Intervention Used; medication not availablee): jb4 dzygjeuyp-bkmttqdxpkb-2%: (1:100,000) 20 ml 20 ml Infiltration once; to bedside 07:00 Drug: Lidocaine-Epinephrine Infiltration -2 % (1:100,000) 10 ml Infiltration once; to kc6 bedside {Note: mouth.} Route: Infiltration; Medication: 06:52 VIS not applicable for this client. jb4 Outcome: 08:30 Discharge ordered by . rn 08:47 Discharged to home ambulatory, with significant other, kc6 08:47 Condition: good 08:47 Discharge instructions given to patient, Instructed on discharge instructions, follow up and referral plans. wound care, Demonstrated understanding of instructions, follow-up care, wound care, 08:47 Patient left the ED. kc6 Signatures: Fran Mckay MD MD rn Bryson, James, RN RN jb4 Maricarmen Bird Kaitlyn, RN RN kc6 Brooks Chu MD MD sp4 Flavia Daley 2
--- NOTE | 2023-10-14 08:30 | EDPHYS ---
Physician Documentation [facility] Name: Zee Neri Age: 68 yrs Sex: Female : 1955 Arrival Date: 10/14/2023 Time: 06:20 Bed 6 Private MD: ED Physician Fran Mckay HPI: 10/13 06:28 This 68 yrs old Other Female presents to ER via Unassigned with complaints of BLOOD sp4 COMING OUT OF MOUTH. 07:17 Blphibh-idnj-jcz female presents with acute onset of bleeding from the right upper sp4 gingiva. Bleeding described as moderate. . Historical: - Allergies: 06:51 Sulfa (Sulfonamide Antibiotics); jb4 - PMHx: 06:51 Hypertensive disorder; jb4 - PSHx: 06:51 Cholecystectomy; hysterectomy; pacemaker; Stented artery; Tonsillectomy; jb4 - Immunization history:: Adult Immunizations up to date. - Infectious Disease History:: Denies. - Social history:: Smoking status: Patient denies any tobacco usage or history of. - Family history:: not pertinent. ROS: 07:17 Constitutional: Negative for fever, chills, and weight loss, positive for bleeding from sp4 right upper gingiva 07:17 All other systems are negative, Exam: 07:17 Constitutional: This is a well developed, well nourished patient who is awake, alert, sp4 and in no acute distress. Head/Face: Normocephalic, atraumatic. Eyes: Pupils equal round and reactive to light, extra-ocular motions intact. Lids and lashes normal. Conjunctiva and sclera are not injected. Cornea within normal limits. Periorbital areas with no swelling, redness, or edema. ENT: Nares patent. No nasal discharge, no septal abnormalities noted. Tympanic membranes are normal and external auditory canals are clear. Oropharynx with no redness, swelling, or masses, exudates, or evidence of obstruction, uvula midline. Mucous membranes moist. There is dental bridge that spans teeth #3 , 4 and 5, there is small but persistent bleeding coming from under the bridge right around tooth #3. The origin of the bleeding is not visualized secondary to bridge obscuring the oringin of bleeding Neck: Trachea midline, no thyromegaly or masses palpated, and no cervical lymphadenopathy. Supple, full range of motion without nuchal rigidity, or vertebral point tenderness. Chest/axilla: Normal chest wall appearance and motion. Nontender with no deformity. No lesions are appreciated. Cardiovascular: Regular rate and rhythm with a normal S1 and S2. No gallops, murmurs, or rubs. Normal PMI, no JVD. No pulse deficits. Respiratory: Lungs have equal breath sounds bilaterally, clear to auscultation and percussion. No rales, rhonchi or wheezes noted. No increased work of breathing, no retractions or nasal flaring. Abdomen/GI: Soft, with normal bowel sounds. No distension or tympany. No guarding or rebound. No evidence of tenderness throughout. Back: No spinal tenderness. No costovertebral tenderness. Skin: Warm, dry with normal turgor. Normal color with no rashes, no lesions, and no evidence of cellulitis. MS/ Extremity: Pulses equal, no cyanosis. Neurovascular intact. Full, normal range of motion. Neuro: Awake and alert, GCS 15, oriented to person, place, time, and situation. Cranial nerves II-XII grossly intact. Motor strength 5/5 in all extremities. Sensory grossly intact. Psych: Awake, alert, with orientation to person, place and time. Behavior, mood, and affect are within normal limits Vital Signs: 06:49 BP 168 / 70; Pulse 60; Resp 16; Temp 97.4(TE); Pulse Ox 98% on R/A; Weight 99.34 kg (R);jb4 07:59 BP 143 / 58; Pulse 60; Resp 16 S; Pulse Ox 92% on R/A; kc6 [place] Coma Score: 07:17 Eye Response: spontaneous(4). Motor Response: obeys commands(6). Verbal Response: sp4 oriented(5). Total: 15. Procedures: 07:21 Performed Packing, after a dental block. Lidocaine 2% with epinephrine used to provide sp4 dental block to right upper gingiva. After that Surgicel used to pack next to the site of bleeding next to the dental bridge. At this time will allow this to sit for an hour and reassess. . MDM: 06:37 Patient medically screened. sp4 07:21 Differential Diagnosis Dental or gingival bleeding . Data reviewed: vital signs, nurses sp4 notes. Transition of care: After a detail discussion of the patient's case, care is transferred to Fran Mckay MD. 08:27 Counseling: I had a detailed discussion with the patient and/or guardian regarding the rn historical points, exam findings, and any diagnostic results supporting the discharge/admit diagnosis, the need for outpatient follow up, to return to the emergency department if symptoms worsen or persist or if there are any questions or concerns that arise at home. Response to treatment: the patient's symptoms have resolved after treatment, and as a result, I will discharge patient. ED course: Consulted with Dr. An, discussed case, and will be able to work her in to his schedule this afternoon in clinic. Patient no longer bleeding. Hemostasis achieved with epinephrine and Surgicel. Will discharge with return precautions.. 10/13 06:36 Order name: Suction; Complete Time: 07:00 sp4 Administered Medications: 06:53 Not Given (Other Intervention Used; medication not availablee): jb4 wouonzorz-qwceriucvoj-7%: (1:100,000) 20 ml 20 ml Infiltration once; to bedside 07:00 Drug: Lidocaine-Epinephrine Infiltration -2 % (1:100,000) 10 ml Infiltration once; to kc6 bedside {Note: mouth.} Route: Infiltration; Disposition Summary: 10/14/23 08:30 Discharge Ordered Notes: Location: Home rn Problem: new rn Symptoms: have improved rn Condition: Stable rn Diagnosis - Oral bleeding - Dental bridge rn Followup: rn - With: Newton An DDS - When: Upon discharge from the Emergency Department - Reason: Recheck today's complaints, Re-evaluation by your physician Forms: - Medication Reconciliation Form rn - Thank You Letter rn - Antibiotic product managent intern - Prescription Opioid Use rn - Patient Portal Instructions rn - Leadership Thank You Letter rn Signatures: Fran Mckay MD MD rn Bryson, James, RN RN jb4 Alysha Sauer RN RN kc6 Brooks Chu MD MD sp4
[2023-10-14 08:58] VITALS: BP 143/58; TEMP 97.4; O2SAT 92
== END 2023-10-14 08:47 | disposition home or self-care (01) ==
LOC: ER 06:20
DX: R58 Hemorrhage, not elsewhere classified (principal); Z98.811 Dental restoration status; Z95.0 Presence of cardiac pacemaker; Z88.2 Allergy status to sulfonamides
CPT/HCPCS: 99283